=== PATIENT | male | born 1950 | race Caucasian/White ===

== ENCOUNTER 2023-07-28 16:51 | Inpatient (IN) | payer MEDICARE, BC, SELFPAY ==
[2023-07-28] VITALS (9 sets, daily range): BP systolic 85–110; BP diastolic 44–64; BMI 46.5
--- NOTE | 2023-07-28 16:51 | HPS.HSE ---
Addendum entered and electronically signed by CALI Padron 08/05/23 18:19:
Home medications:
Aspirin 81 mg p.o. daily
Metoprolol succinate 12.5 mg p.o. twice daily
Furosemide 40 mg p.o. daily
Pantoprazole 40 mg IV daily
Metformin 1000 mg p.o. twice daily
Original Note:
Family Physician
-
Family Physician: Dave Carl
Outpatient Chief Investigator: Pieter Caro
Chief Complaint
-
shortness of breathe
History of Present Illness
72 y/o male ([place] vet) with PMHx of HTN, HLD, DMII presented to [facility] on 07/26 with SOB x3 days. He was also c/o LE swelling of the last few months along with some QUILES. He called his PCP and they recommended he go to the hospital. He was found to be
hypoxic in the 70s and was placed on BIPAP. His BNP was 47, however, his CXR at that time showed vascular congestion. Therefore, he was diuresed with 40mg of IV Lasix and responded appropriately. EKG in ER showed ST-Depressions and troponins were
sent. First trop HS was 44 and the next was 8459. He was started on a heparin gtt for NSTEMI. At that time, he received a TTE that showed a NML LVEF. �They found that with hypertensive episodes he would start c/o CP, therefore, he was started on a
nitro gtt. He started to vomit coffee ground emesis so GI was consulted and was started on IV protonix and IV heparin was discontinued. His hgb remained stable. Today, he was taken to the CCL at [facility] and was found to have severe multi-vessel disease
and RHC numbers were stable. Therefore, he was transferred to [facility] for CABG eval.
Medical History
Past Medical History
Past Medical History: Reports CAD, HTN, Hypercholesterolemia, NIDDM and VA
Past Surgical History: Reports Appendectomy
Additional Past Surgical History:
cataracts
broken bones
Social History
Tobacco: Non-smoker
Alcohol: Occasional
Drug: None
Family History
Family History: CAD
Allergies / Home Medications
Allergies reflects when Allergies were last updated in [facility].
Home Medications with original date entered in [facility]
Allergy/Medication List:
NKDA
Review of Systems
-
History Source: Patient
A 12 point ROS was completed and negative except as noted: Yes
Constitutional: Reports Weight Gain
EENT: Reports No Symptoms
Respiratory: Reports Other (SOB/QUILES)
Cardiac: Reports Chest Pain
Abdomen/GI: Reports Vomiting and Other (reflux)
: Reports Dysuria, Difficulty Voiding and Urgency
Musculoskeletal: Reports Edema
Neurological: Reports No Symptoms
Endocrine: Reports No Symptoms
Hematologic/Lymphatic: Reports No Symptoms
Psych: Reports No Symptoms
Physical Exam
Vital Signs
Active Medications
Acetaminophen (Acetaminophen 325 Mg Tablet) 650 mg PO Q4HPRN PRN
PRN Reason: mild pain/BABB/temp> 100.4F
Stop: 08/25/23 11:09
Albuterol/Ipratropium (Ipratropium 0.5/Albuterol 3 Mg (3 Ml Ampul)) 3 ml INH R Q4HPRN PRN; Protocol
PRN Reason: shortness of breath
Aspirin (Aspirin 81 Mg (Enteric Coated) Tablet) 81 mg PO DAILY IRMA
Stop: 08/26/23 07:59
Atorvastatin Calcium (Atorvastatin (Lipitor) 80 Mg Tablet) 80 mg PO QPM IRMA
Stop: 08/25/23 17:59
Dextrose (Dextrose 50% (0.5 Grams/Ml) 50 Ml Syringe) 12.5 grams IV [id number] PRN; Protocol
PRN Reason: hypoglycemia
Stop: 08/25/23 17:41
Docusate Sodium (Docusate Sodium 100 Mg Capsule) 100 mg PO BID IRMA
Stop: 08/25/23 19:59
Furosemide (Furosemide 40 Mg Tablet) 40 mg PO DAILY IRMA
Stop: 08/26/23 07:59
Glucagon (Glucagon 1 Mg Vial) 1 mg IM PRN PRN; Protocol
PRN Reason: hypoglycemia
Stop: 08/25/23 17:41
Pantoprazole Sodium (Protonix) 80 mg in 100 mls @ 10 mls/hr IV Q10H IRMA
Insulin Aspart (Insulin Aspart High Resistance 300 Units/3 Ml Pen.Injctr) 0 units SC AC IRMA; Protocol
Stop: 08/26/23 07:29
Ondansetron HCl (Ondansetron 4 Mg/2 Ml Vial) 4 mg IV Q6HPRN PRN
PRN Reason: nausea and vomiting
Stop: 08/25/23 11:09
Polyethylene Glycol (Polyethylene Glycol Powder 17 Grams Packet) 17 grams PO DAILY IRMA
Stop: 08/26/23 07:59
Potassium Chloride (Potassium Chloride 20 Meq Powder Packet) 20 meq PO DAILY IRMA
Stop: 08/26/23 07:59
Sodium Chloride (Sodium Chloride 0.9% (Flush) Syringe) 0 flush IV PER PROTOCOL IRMA
Stop: 08/25/23 17:59
Tamsulosin HCl (Tamsulosin 0.4 Mg Capsule) 0.8 mg PO DAILY IRMA
Stop: 08/26/23 07:59
Vital Signs
Temp Pulse Resp BP Pulse Ox
98.2 F 85 15 95/58 95
07/28/23 17:01 07/28/23 17:01 07/28/23 17:01 07/28/23 16:56 07/28/23 17:01
I&O
07/26/23 07/27/23 07/28/23 07/29/23
06:59 06:59 06:59 06:59
Intake Total 250 / 250
Balance 250 / 250
Physical Exam
General: Well Developed, Well Nourished, No Apparent Distress and Morbidly Obese
Respiratory: Non Labored Respirations
Cardiac: S1/S2 and Regular Rhythm
Breast: Deferred by me
GI: Soft, Non Tender and Other (obese)
Rectal: Deferred by Provider
Genito-urinary: Mak
Musculoskeletal: No Clubbing, No Cyanosis, Edema, Left Lower Extremity and Edema, Right Lower Extremity
Skin: Warm and Dry
Neuro: AO x 3
Hematologic/Lymphatic: No Lymphadenopathy
Psych: Calm
Laboratory Results
-
Lab Results
07/28/23 17:37
07/28/23 17:37
PT 13.9 Sec (11.4-14.6) 07/28/23 17:37
INR 1.07 07/28/23 17:37
APTT 25.5 Sec (23.4-35.0) 07/28/23 17:37
Impression/Plan
-
IMPRESSION:
72 y/o male with PMHx listed above presented to [facility] with SOB. He ruled in for a NSTEMI and was taken to the CCL. He was found to have MVD and was transferred to for surgical eval.
PLAN:
#CAD
- planned for CABG on Sunday July 30, [address] López
- Routine preoperative cardiothoracic surgery orders will be initiated.
>>obtain TTE images from [facility]
-STS risk stratification score will be calculated after preoperative testing is complete
- Currently CP free so no nitro gtt
- Previous witnessed to have bloody vomited at [facility] so no heparin gtt at this time
- Cont ASA
- Daily EKG
-Cardiology consulted
#Possible upper GIB
- protonix gtt per GI
- GI consulted
- follow CBC trend
- Monitor for more bloody episodes
#Diabetes Type II
- Holding metformin and empagliflozin
- Hgb A1c pending
- SSI while inpatient
#HTN
- Holding Lisinopril
- Cardiology consulted
#Obesity
- BMI 46.5
- Diet education
#Urinary Frequency
- Mak catheter inserted at [facility]
- UA pending
- started on flomax
- Monitor I&O; remove tomorrow
Labs
-
Labs:
WBC 15.3 10^3/uL (4.8-10.8) H 07/28/23 17:37
RBC 4.39 10^6/uL (4.70-6.10) L 07/28/23 17:37
Hgb 13.2 g/dL (13.0-18.0) 07/28/23 17:37
Hct 38.9 % (39.0-52.0) L 07/28/23 17:37
Plt Count 334 10^3/uL (130-400) 07/28/23 17:37
Sodium 132 mmol/L (135-145) L 07/28/23 17:37
Potassium 4.0 mmol/L (3.5-5.1) 07/28/23 17:37
Chloride 95 mmol/L (98-107) L 07/28/23 17:37
Carbon Dioxide 26 mmol/L (22-30) 07/28/23 17:37
BUN 51 mg/dl (9-20) H 07/28/23 17:37
Creatinine 1.3 mg/dL (0.7-1.3) 07/28/23 17:37
eGFR 58.01 07/28/23 17:37
Glucose 165 mg/dl (70-99) H 07/28/23 17:37
Calcium 9.1 mg/dl (8.4-10.2) 07/28/23 17:37
Albumin 4.3 g/dl (3.5-5.0) 07/28/23 17:37
[2023-07-28 17:43] LABS: % Basophils 0.5 % (0-2); % Immature Granulocytes 0.5 % (0-0.5); % Lymphocytes 17.9 % (20.5-51.1); % Monocytes 8.6 % (1.7-9.3); % Neutrophils 71.5 % (42.2-75.2); Absolute Basophils 0.1 10^3/uL (0-0.2); Absolute Eosinophils 0.2 10^3/uL (0-0.7); Absolute Immature Granulocytes 0.1 10^3/uL (0-0.05); Absolute Lymphocytes 2.7 10^3/uL (1.2-3.4); Absolute Monocytes 1.3 10^3/uL (0.1-0.6); Absolute Neutrophils 10.9 10^3/uL (1.4-6.5); Hematocrit 38.9 % (39.0-52.0); Hemoglobin 13.2 g/dL (13.0-18.0); Mean Corp Hgb Conc. 33.9 g/dL (33.0-37.0); Mean Corpuscular Hgb 30.1 pg (27.0-31.0); Mean Corpuscular Volume 88.6 fL (80.0-94.0); Nucleated Red Blood Cells % 0 % (-); Platelet Count 334 10^3/uL (130-400); Red Blood Cell Count 4.39 10^6/uL (4.70-6.10); Red Cell Dist. Width 13.6 % (11.5-14.5); White Blood Cell Count 15.3 10^3/uL (4.8-10.8)
[2023-07-28 17:53] LABS: INR 1.07; PT 13.9 Sec (11.4-14.6)
[2023-07-28 17:54] LABS: APTT 25.5 Sec (23.4-35.0)
[2023-07-28 17:57] LABS: ALT (SGPT) 36 U/L (0-50); AST (SGOT) 50 U/L (17-59); Albumin 4.3 g/dl (3.5-5.0); Alkaline Phosphatase 56 U/L (38-126); Blood Urea Nitrogen 51 mg/dl (9-20); Calcium 9.1 mg/dl (8.4-10.2); Carbon Dioxide 26 mmol/L (22-30); Chloride 95 mmol/L (98-107); Estimated Creatinine Clearance 73 ml/min; Glucose 165 mg/dl (70-99); HDL Cholesterol 39 mg/dl; Magnesium 2.2 mg/dl (1.6-2.3); Sodium 132 mmol/L (135-145); Total Cholesterol 150 mg/dl (50-199); eGFR 58.01
[2023-07-28] MEDS: LIPITOR 80 MG PO (18:30)
[2023-07-28] MEDS: PROTONIX 100 IV (18:30)
[2023-07-28 18:46] LABS: LDL Cholesterol, Calculated 69 mg/dl; Triglyceride 214 mg/dl (10-149); Very Low Density Lipoprotein 42 mg/dl (0-30)
--- NOTE | 2023-07-28 18:54 | PTCARENOTE ---
Patient received as transfer from [facility] into room 2264. NSR via cm, SaO2 @ 96% on RA. Mak catheter draining cloudy yellow urine. Patient denies pain at this time. Admission completed, patient oriented to room and facility. Family to bedside. See
work list for full assessment and interventions performed.
[2023-07-28] MEDS: COLACE 100 MG PO (20:00)
--- NOTE | 2023-07-28 20:00 | PTCARENOTE ---
Received pt from dayshift; pt resting comfortably in chair with family in room; pt denies chest pain and SOB; VSS; NSR on monitor; heart sounds distant, radial and DP pulses palpable, no edema noted; lung sounds diminished throughout, spo2 94% on
RA; hypoactive BS x4 quadrants, abdomen round, soft non tender; pt voiding yellow urine via reza catheter; right radial cath site dressing is clean dry and intact; right PIV maintained; Protonix gtt infusing; call reyes within reach; will continue
to monitor.
--- NOTE | 2023-07-28 21:00 | PTCARENOTE ---
Pt assessment unchanged; NSR on monitor, VSS; pt denies chest pain and SOB; left PIV was removed due to leaking; x1 attempt was made to place a new PIV. Attempt was unsuccessful; IV team was called; IV team attempted PIV multiple times and was
unsuccessful; Pt currently has x1 PIV on right arm; CVPA made aware of failed attempts; will continue to monitor.
[2023-07-28 21:44] LABS: Glucose - Point of Care 147 mg/dl (70-99)
[2023-07-28 22:26] LABS: Urine Albumin Trace (Neg - Trace); Urine Bilirubin Negative (Negative); Urine Character Clear (Clear); Urine Color Yellow; Urine Glucose 1+ (Negative); Urine Ketone Negative (Negative); Urine Leukocyte 1+ (Negative); Urine Nitrite Negative (Negative); Urine Occult Blood 3+ (Negative); Urine Urobilinogen Negative (Neg - 1+)
[2023-07-28 22:57] LABS: Urine Hyaline Cast >15 /LPF (0-2)
[2023-07-28 22:59] LABS: Urine Red Blood Cell 21-25 /HPF (0-2)
[2023-07-28 23:00] LABS: Urine Bacteria Few (Negative); Urine Granular Cast 0-2 /LPF (0); Urine Red Cell Cast 0-2 /LPF
[2023-07-29] VITALS (16 sets, daily range): BP systolic 77–115; BP diastolic 41–72; BMI 46.6
--- NOTE | 2023-07-29 | PTCARENOTE ---
Pt assessment unchanged; Pt denies chest pain and SOB; NSR on monitor, VSS; pt resting comfortably in bed; call reyes within reach; will continue to monitor.
[2023-07-29] MEDS: PROTONIX 100 IV (03:33)
[2023-07-29 03:47] LABS: Hematocrit 37.9 % (39.0-52.0); Hemoglobin 12.8 g/dL (13.0-18.0); Mean Corp Hgb Conc. 33.8 g/dL (33.0-37.0); Mean Corpuscular Volume 88.8 fL (80.0-94.0); Mean Platelet Volume 10.1 fL (7.4-10.4); Platelet Count 298 10^3/uL (130-400); Red Blood Cell Count 4.27 10^6/uL (4.70-6.10); Red Cell Dist. Width 13.6 % (11.5-14.5); White Blood Cell Count 13.8 10^3/uL (4.8-10.8)
--- NOTE | 2023-07-29 04:00 | PTCARENOTE ---
Pt assessment unchanged; NSR on monitor, VSS; Pt resting comfortably in bed; pt denies chest pain and SOB; EKG obtained and labs drawn; call reyes within reach; will continue to monitor.
[2023-07-29 04:03] LABS: INR 1.03; PT 13.5 Sec (11.4-14.6)
[2023-07-29 04:04] LABS: APTT 25.8 Sec (23.4-35.0)
[2023-07-29 04:12] LABS: ALT (SGPT) 32 U/L (0-50); AST (SGOT) 37 U/L (17-59); Albumin 4.1 g/dl (3.5-5.0); Alkaline Phosphatase 52 U/L (38-126); Blood Urea Nitrogen 54 mg/dl (9-20); Carbon Dioxide 29 mmol/L (22-30); Chloride 95 mmol/L (98-107); Estimated Creatinine Clearance 80 ml/min; Glucose 161 mg/dl (70-99); Potassium 3.6 mmol/L (3.5-5.1); Sodium 133 mmol/L (135-145); Total Bilirubin 1.3 mg/dl (0.2-1.3); Total Protein 6.7 g/dl (6.3-8.2); eGFR > 60.00
--- NOTE | 2023-07-29 04:34 | W.PN.CT ---
Today's Communication / Plan
-
-no issues overnight
-drips: Protonix
-denies CP, remains off iv Nitro or iv Heparin
-mildly hypotensive 90s, asymptomatic
-recent possible GI bleed while on Heparin - appreciate GI input
-workup ongoing - follow Carotic US, chest CT, labs...
-plans for OR on Saturday 07/29
Assessment / Plan
-
Impression:
- 80-90% LM-CAD - work-up is ongoing. Plans for CABG on Sunday July 30, [address] López
- NSTEMI
- possible upper GI bleed while on iv Heparin at [facility] - now off Heparin, was evaluated by GI at [facility], started on iv Protonix drip
- Acute diastolic CHF with admission to [facility] on 07/27/23- tx with bipap and iv Lasix
- HTN/HLD
- 1st degree AVB
- EF 60%, no significant valve aborm by Echo at [facility]
- DM II
- Class 3 obesity (BMI 46)
- Urinary frequency - Mak placed at [facility]
- Non-smoker (hx 2nd hand smoke exposure)
Discussed patient care with: Nursing and Care Team
Subjective
-
Date of Service: July 29, 2023
Objective Data
-
Lab Results
07/29/23 03:36
07/29/23 03:36
PT 13.5 Sec (11.4-14.6) 07/29/23 03:36
INR 1.03 07/29/23 03:36
APTT 25.8 Sec (23.4-35.0) 07/29/23 03:36
Vital Signs
Vital Signs
Temp Pulse Resp BP Pulse Ox
98.8 F 73 17 92/46 96
07/29/23 04:00 07/29/23 04:15 07/28/23 17:45 07/29/23 04:01 07/29/23 04:01
CT Intake/Output/Weight
07/28/23 07/28/23 07/29/23
06:59 18:59 06:59
Intake Total 250 / 730 480 / 730
Output Total 100 / 625 525 / 625
Balance 150 / 105 -45 / 105
SaO2: 96
Physical Exam
-
General: Awake and AOx3
Cardiovascular: Regular rate & rhythm and No Murmurs
Respiratory: Decreased Breath Sounds (no wheeze, no rales)
Extremities: Edema +1
Data Reviewed
-
Lab Results: Results Reviewed
Medications: Active Meds Reviewed
Chest X-Ray: Report Reviewed and Image Reviewed
ECG: Report Reviewed and Image Reviewed
[2023-07-29 04:59] LABS: HCO3 28.5 mmol/L (21-28); O2 Saturation % 97.4 % (94-98); PCO2 46 mmHg (35-48); PO2 122 mmHg (83-108)
--- NOTE | 2023-07-29 07:45 | PTCARENOTE ---
Received pt from camp dining room attendant RN; NSR on monitor and VSS; Lungs diminished; IS 1500; positive bowel sounds; Mak Catheter draining clear yellow urine; weak pedal pulses; see nursing documentation for further details.
[2023-07-29] MEDS: NOVOLOG FLEXPEN-HIGH RESISTANCE SC (07:54)
[2023-07-29] MEDS: KCL 20 MEQ PO (08:03)
[2023-07-29] MEDS: ASPIR LOW (ENTERIC COATED) 81 MG PO (08:03)
[2023-07-29] MEDS: LASIX 40 MG PO (08:03)
[2023-07-29] MEDS: FLOMAX 0.800000000000000044 MG PO (08:03)
[2023-07-29] MEDS: COLACE 100 MG PO ×2 (08:04→20:42)
[2023-07-29] MEDS: MIRALAX 17 GRAMS PO (08:04)
--- NOTE | 2023-07-29 08:19 | PTCARENOTE ---
Pt sent to CAT scan via stretcher.
[2023-07-29 08:54] LABS: Glycohemoglobin (HgbA1c) 7.5 % (4.0-5.6)
--- NOTE | 2023-07-29 11:03 | W.PN.UPDATE ---
Update Note
Progress Note Update
Procedure Type:�Isolated CABG
PERIOPERATIVE OUTCOME ESTIMATE %
Operative Mortality 4.55%
Morbidity & Mortality 15.9%
Stroke 1.03%
Renal Failure 3.83%
Reoperation 2.17%
Prolonged Ventilation 10.3%
Deep Sternal Wound Infection 0.527%
Long Hospital Stay (>14 days) 11.7%
Short Hospital Stay (<6 days)* 25.5%
Clinical Summary
Planned Surgery: Isolated CABG, Urgent, First cardiovascular surgery
Demographics: 72 year old, male, 147kg, 178cm, BMI: 46.4 kg/m�
Lab Values: Creatinine: 1.2 mg/dL, Hematocrit: 37.8%, WBC Count: 13.8 10�/�L, Platelet Count: 433512 cells/�L
PreOp Medications: Oral diabetes control
Substance Abuse: Never smoker, Alcohol use: <=1 drink/week
Risk Factors / Comorbidities: Diabetes Mellitus , Hypertension, Family Hx of CAD
Cardiac Status: Acute heart failure, NYHA Class I, Ejection Fraction = 55%
Coronary Artery Disease: 2 vessels diseased, Left Main Stenosis >=50%, Non-ST Elevation WI, WI: 1 to 7 Days
[2023-07-29 11:14] LABS: Glucose - Point of Care 171 mg/dl (70-99)
[2023-07-29] MEDS: NOVOLOG FLEXPEN-HIGH RESISTANCE 2 UNITS SC ×2 (11:41→15:49)
--- NOTE | 2023-07-29 11:47 | W.PN.UPDATE ---
Update Note
Progress Note Update
CARDIAC SURGERY ATTENDING:
I had a long conversation w/ Mr. Gaurang Luo at bedside this afternoon. His was present via speakerphone. We reviewed his pathology, the proposed operative interventions, the associated perioperative risks [including, but not limited to,
, stroke, ID, arrhythmia, BRANDON/F, PNA, bleeding, and infection], the expected in-hospital postoperative course, and the expected outpatient recovery. All questions were answered to the best of my abilities. The patient is agreeable to proceed.
I will plan for OR tomorrow, 07/30/2023 w/ LUIS to LAD and GSV to OM.
Thank you for the opportunity to participate in the care of this kind gentleman.
Carson López M.D.
[phone]
--- NOTE | 2023-07-29 11:53 | CM ---
Addendum entered by CRISTI Orlando 07/29/23 16:21:
Met w/ patient, spouse Marcela and 2 grandchildren.
Reviewed pre and post op routines.
Provided Cardiac Rehab booklet.
Reviewed post op restrictions to include lifting, driving and flying restrictions.
Discussed post op MD appointments, Cardiac Rehab and visit from (pt. out of geographical area for CT Transitional Care RN).
Plan for CT Surgery, 07/29
Anticipated DC plan is for home w/ CT Transitional Care RN.
Will cont. to follow.
Original Note:
CM following for DC planning needs.
Pt. transferred to from [facility], 07/27.
Met w/ patient, son Nba at bedside.
Pt. reports that he resides w/ spouse and dtr. in a private, 2 story home. Patient has a 1st floor set up. He is functionally indep. at baseline w/ ADLs, mobility without use of any assisted device. There is no DME, O2 in the home.
Pt. is anticipating CT Surgery on 07/29. Will return when spouse arrives to complete pre-op teaching.
--- NOTE | 2023-07-29 14:03 | PTCARENOTE ---
Assessment unchanged; NSR on monitor and VSS; pt resting in chair with family at bedside.
[2023-07-29 15:49] LABS: Glucose - Point of Care 171 mg/dl (70-99)
[2023-07-29] MEDS: LIPITOR 80 MG PO (17:22)
--- NOTE | 2023-07-29 17:24 | PTCARENOTE ---
NSR on monitor and VSS: assessment unchanged; family at bedside and all questions answered regarding surgery tomorrow.
--- NOTE | 2023-07-29 21:00 | PTCARENOTE ---
Patient received OOB in chair. Patient A+A+Ox3. No neurological deficits noted. Patient clipped and prepped for CVOR in AM. Patient showered with 4% chlorhexidine wash. Linens changed. Patient now resting in chair watching television. Room
air. SaO2 94%. Sinus Rhythm to Sinus Tachycardia. Heart rate 80-100's. No c/o SOB. No c/o chest pain, pressure or discomfort. Normoactive bowel sounds. No BM. Positive flatus. Voiding without difficulty. Assessment as documented.
[2023-07-29 23:32] LABS: Glucose - Point of Care 170 mg/dl (70-99)
[2023-07-30] VITALS (17 sets, daily range): BP systolic 87–141; BP diastolic 42–85; BMI 46.4
--- NOTE | 2023-07-30 00:30 | PTCARENOTE ---
Patient NPO after midnight. Patient resting in bed. No changes from previous assessment.
[2023-07-30] MEDS: PROTONIX 40 MG PO (06:18)
[2023-07-30] MEDS: LOPRESSOR 12.5 MG PO (06:18)
[2023-07-30] MEDS: BACTROBAN 2% OINTMENT 1 APPLIC NASAL ×2 (06:18→19:47)
[2023-07-30] MEDS: MAGNESIUM OXIDE 500 MG PO (06:18)
--- NOTE | 2023-07-30 06:20 | PTCARENOTE ---
Patient A+A+Ox3. No neurological deficits noted. Patient with no c/o pain or discomfort. Patient took 4% Chlorhexidine shower this AM. Linens changed. Pre-Op medications administered. Lopressor 12.[address] López arrived and spoke
with patient. Patient resting in room. Veneer Stock Layer to CVOR. Assessment/Interventions as documented.
[2023-07-30 08:07] LABS: Urine Albumin Trace (Neg - Trace); Urine Bilirubin Negative (Negative); Urine Character Clear (Clear); Urine Color Yellow; Urine Glucose 3+ (Negative); Urine Ketone Negative (Negative); Urine Leukocyte 2+ (Negative); Urine Nitrite Negative (Negative); Urine Occult Blood 4+ (Negative); Urine Specific Gravity 1.015 (<1.030); Urine Urobilinogen Negative (Neg - 1+)
[2023-07-30 08:19] LABS: ACT+ - POC 90 Seconds (82-134)
[2023-07-30 08:20] LABS: Urine Squamous Cell 0-2 /LPF (Few)
[2023-07-30 08:21] LABS: B.E. - POC 2.1 mmol/L; Glucose - POC 189 mg/dl (65-99); HCO3 - POC 28 mmol/L (21-29); Hematocrit - POC 40 % PCV (42-52); Hemodilution- POC No; Hemoglobin Calculated - POC 13.7; Ionized Calcium - POC 1.18 mmol/L (1.12-1.27); PCO2 - POC 45 mmHg (35-45); PO2 - POC 133 mmHg (80-100); Sodium - POC 138 mmol/L (135-145)
--- NOTE | 2023-07-30 09:00 | CM ---
Addendum entered by CRISTI Orlando 07/30/23 16:23:
In anticipation of VN need, referral initiated to [facility], accepted. Will need to update them on DC date.
Original Note:
Patient in OR today for planned CABG.
CM to follow for DC planning needs.
[2023-07-30 11:38] LABS: B.E. - POC -1.3 mmol/L; Glucose - POC 193 mg/dl (65-99); HCO3 - POC 25 mmol/L (21-29); Hematocrit - POC 33 % PCV (42-52); Hemodilution- POC No; Hemoglobin Calculated - POC 11.4; Ionized Calcium - POC 1.16 mmol/L (1.12-1.27); O2 Saturation %Calculated-POC 98.6 5 (92-96); PCO2 - POC 50 mmHg (35-45); PO2 - POC 131 mmHg (80-100); Potassium - POC 4.1 mmol/L (3.6-5.0); Sodium - POC 139 mmol/L (135-145); pH - POC 7.31 (7.35-7.45)
[2023-07-30 11:44] LABS: ACT+ - POC 489 Seconds (82-134)
[2023-07-30] MEDS: LASIX PO (11:59)
[2023-07-30] MEDS: COLACE PO (11:59)
[2023-07-30] MEDS: FLOMAX PO (11:59)
[2023-07-30] MEDS: ASPIR LOW (ENTERIC COATED) PO (12:00)
[2023-07-30] MEDS: NOVOLOG FLEXPEN-HIGH RESISTANCE SC ×2 (12:00)
[2023-07-30] MEDS: MIRALAX PO (12:00)
[2023-07-30 12:09] LABS: B.E. - POC 3.1 mmol/L; Glucose - POC 195 mg/dl (65-99); HCO3 - POC 28 mmol/L (21-29); Hematocrit - POC 29 % PCV (42-52); Hemodilution- POC Yes; Hemoglobin Calculated - POC 9.9; Ionized Calcium - POC 1.01 mmol/L (1.12-1.27); PCO2 - POC 44 mmHg (35-45); PO2 - POC 400 mmHg (80-100); Potassium - POC 4.2 mmol/L (3.6-5.0); Sodium - POC 136 mmol/L (135-145); pH - POC 7.42 (7.35-7.45)
[2023-07-30 12:41] LABS: B.E. - POC 1.5 mmol/L; Glucose - POC 211 mg/dl (65-99); HCO3 - POC 27 mmol/L (21-29); Hematocrit - POC 38 % PCV (42-52); Hemodilution- POC Yes; Hemoglobin Calculated - POC 13.1; Ionized Calcium - POC 1.05 mmol/L (1.12-1.27); O2 Saturation %Calculated-POC 98.7 5 (92-96); PCO2 - POC 45 mmHg (35-45); PO2 - POC 124 mmHg (80-100); Potassium - POC 4.3 mmol/L (3.6-5.0); Sodium - POC 138 mmol/L (135-145); pH - POC 7.39 (7.35-7.45)
[2023-07-30 13:22] LABS: ACT+ - POC 427 Seconds (82-134)
[2023-07-30 13:22] LABS: ACT+ - POC 483 Seconds (82-134)
[2023-07-30 13:30] LABS: ACT+ - POC 85 Seconds (82-134)
[2023-07-30 13:34] LABS: B.E. - POC -1.9 mmol/L; Glucose - POC 169 mg/dl (65-99); HCO3 - POC 23 mmol/L (21-29); Hematocrit - POC 32 % PCV (42-52); Hemodilution- POC Yes; Hemoglobin Calculated - POC 10.9; Ionized Calcium - POC 1.27 mmol/L (1.12-1.27); O2 Saturation %Calculated-POC 96.3 5 (92-96); PCO2 - POC 40 mmHg (35-45); PO2 - POC 86 mmHg (80-100); Potassium - POC 3.8 mmol/L (3.6-5.0); Sodium - POC 140 mmol/L (135-145); pH - POC 7.38 (7.35-7.45)
--- NOTE | 2023-07-30 14:18 | W.CVOR.SURPR ---
CVOR Surgeon Immed Pre Op
-
I have examined this patient prior to performance of the scheduled procedure.
The patient's condition is unchanged from the time of the dictated/written History and
Physical and the patient is able to undergo the scheduled procedure.
--- NOTE | 2023-07-30 14:19 | W.IMMPOSTOP ---
Addendum entered and electronically signed by Carson López MD 07/30/23 15:02:
Dictated: [id number]
Original Note:
Surgical Immed Post Op Note
-
CARDIAC SURGERY OPERATIVE NOTE:
Preoperative Dx:
NSTEMI
LM CAD
Morbid obesity - BMI 46.1
DM II
Postoperative Dx:
Same
Procedures:
1) Median sternotomy
2) Takedown of LUIS (narrow pedicle)
3) Endoscopic harvest/prep of RLE GSV (not utilized)
4) Endoscopic/open harvest/prep of LLE GSV
5) CABG x 2 (LUIS to LAD, GSV to OM)
Surgeon:
Carson López M.D.
Assistants:
India AmadorA.-C.: endoscopic/open GSV harvest; first line production supervisor throughout; [id number] chest closure
Maye HanleyC.; endoscopic/open GSV harvest; deep [id number]-gm-[id number] chest closure
Anesthesia:
Roberto Rudolph M.D. and Jeromy Garay, C.R.N.A.
Perfusion:
Rashard RobleroPNikkie
Findings:
LUIS was very healthy conduit w/ very brisk blood flow; ELD 3.5mm
RLE GSV was fairly good quality, but the I did not have enough length of good quality to accomplish the graft to the OM
LLE GSV was of good quality & quantity; ELD 3.5mm
LAD was visible under epicardial adipose tissue; healthy vessel w/ scattered calcifications, ELD 2.75mm
OM was visible on the epicardial surface; healthy vessel w/ ELD 3.5mm
Post-VLADIMIR: Normal biventricular function; trace MR, trace TR
Complications:
None
Implants:
CT x 4 (B/L pleural; inferior mediastinal; superior mediastinal)
Sternal wires x 9
Sternal plate x 1 w/ 4 - 16mm and 4 - 14mm screws
Condition:
64 sinus w/ isoelectric STs; 108/66. 44/29. CVP 42. CO/CI: 4.3/1.7.
GTTS: precedex 0.5, levophed 4, insulin 1
Stable/guarded to CVICU
--- NOTE | 2023-07-30 14:29 | CON.INTV ---
Consultation
Consultation Request
Date/Time Consultation Requested: 07/30/2023
Date/Time Consultation Performed: 07/30/2023
Requesting Provider: Dr. López
Performing Provider: Dr. Benji Perez
Reason for Consultation: Postoperative ICU care
Medical History
-
History of Present Illness:
72-year-old male with past medical history significant for hypertension, hyperlipidemia, type 2 diabetes who presented initially to [facility] on 07/27/2023 complaining of shortness of breath for about 3 days. Also complaining of lower
extremity swelling for the last several months with progressive shortness of breath. He was found to be hypoxic and placed on BiPAP. Chest x-ray shows some vascular congestion.
He was found to have an abnormal EKG. Troponins were elevated. [facility] was [facility] to [facility] and he was found to have triple-vessel coronary artery disease.
Subsequently transferred to [facility] for evaluation of revascularization. He was deemed suitable candidate for surgical revascularization.
Underwent coronary artery bypass on 07/30/2023. We were consulted for postoperative critical care management.
Past Medical History
Past Medical History: Other (See assessment and plan section)
Social History
Tobacco: Non-smoker
Alcohol: Occasional
Family History
Family History: Unable to Obtain
Allergies / Home Medications
Allergies
Allergy/AdvReac Type Severity Reaction Status Date / Time
No Known Drug Allergies Allergy Unknown Verified 07/28/23 17:42
Home Medications
Medication Instructions Recorded Confirmed Last Taken Type
alpha lipoic acid 600 mg capsule 600 mg PO BID Supplement 07/28/23 07/28/23 Unknown History
ascorbic acid (vitamin C) 1,000 mg cap PO BID Supplement 07/28/23 07/25/23 History
capsule,extended release
aspirin 81 mg capsule 81 mg PO DAILY Blood Clot 07/28/23 07/28/23 Unknown History
Prevention/Tx
biotin 1,000 mcg chewable tablet 1,000 mcg PO DAILY Supplement 07/28/23 07/28/23 07/25/23 History
calcium 600 mg capsule mg PO BID Supplement 07/28/23 07/25/23 History
coenzyme Q10 100 mg capsule 200 mg PO DAILY Supplement 07/28/23 07/28/23 07/25/23 History
(CoQ-10)
cranberry extract 425 mg capsule 425 mg PO BID Supplement 07/28/23 07/28/23 07/25/23 History
cyanocobalamin (vitamin B-12) 2,500 mcg PO DAILY Supplement 07/28/23 07/28/23 07/25/23 History
1,000 mcg tablet
docosahexaenoic acid (dha)-epa 2 cap PO BID Supplement 07/28/23 07/28/23 07/25/23 History
capsule
empagliflozin 25 mg tablet 25 mg PO DAILY Diabetes 07/28/23 07/28/23 Unknown History
folic acid 800 mcg tablet 0.8 mg PO DAILY Supplement 07/28/23 07/28/23 07/25/23 History
garlic 1,000 mg capsule mg BID Supplement 07/28/23 07/25/23 History
glucosamine sulf dipot cap PO BID Supplement 07/28/23 07/25/23 History
chlr,msm,chond 550 mg-C 30 mg-adiran
1 mg capsule (Glucosamine
Chondroitin)
lisinopril 10 mg tablet 10 mg PO DAILY Blood Pressure 07/28/23 07/28/23 Unknown History
lutein 20 mg-zeaxanthin 1,000 mcg cap PO Supplement 07/28/23 07/25/23 History
capsule
magnesium glycinate 650 mg PO DAILY Supplement 07/28/23 07/28/23 07/25/23 History
metformin 1,000 mg tablet 1,000 mg PO BID Diabetes 07/28/23 07/28/23 Unknown History
milk thistle 200 mg capsule 200 mg PO DAILY Supplement 07/28/23 07/28/23 07/25/23 History
ricphifyparr-fesyiulg-ahefqp tablet 1 tab PO DAILY Supplement 07/28/23 07/28/23 07/25/23 History
pravastatin 20 mg tablet 20 mg PO HS High Cholesterol 07/28/23 07/28/23 Unknown History
saw palmetto 450 mg capsule 450 mg PO BID 07/28/23 07/28/23 07/25/23 History
turmeric 400 mg capsule mg PO TID 07/28/23 07/25/23 History
zinc 50 mg tablet 50 mg PO DAILY 07/28/23 07/28/23 07/25/23 History
Review of Systems
-
Unable to Obtain full review of systems at this time due to: Patient Intubation
Vitals / Labs / Diagnostic Testing
Vital Signs
Temp Pulse Resp BP Pulse Ox
97.8 F 85 16 141/64 96
07/30/23 05:50 07/30/23 06:18 07/30/23 05:50 07/30/23 06:18 07/30/23 05:50
Microbiology
07/28/23 22:14 Urine Urine Culture - Final
NO GROWTH
Diagnostic Testing:
Physical Exam
-
HEENT: Normocephalic and Other (ET tube in place without secretions)
Cardiovascular: S1/S2
Respiratory: Clear and Non-Labored Respirations
GI: Soft and Distended (Obese)
Neurology: Other (Sedated on mechanical ventilation)
Skin: Warm
General: Comfortable
Assessment
-
72-year-old man with past medical history noted initially presented to [facility] shortness of breath. Found to have a non-ST elevation myocardial infarction. Demonstrated to have three-vessel coronary artery disease. Transferred to
[facility] for surgical evaluation. Subsequently underwent coronary artery bypass.
Status post coronary artery bypass 07/30/2023
Postoperative mechanical ventilation
Postoperative anemia
Conditions present prior admission:
Type 2 diabetes
Hypertension
Obesity
VLADIMIR 07/30/2023:
Overall LVEF is approximately 55% with no RWMA.
�Moderate concentric left ventricular hypertrophy.
�Normal diastolic function.
�Aortic sclerosis without stenosis.
�Trace mitral regurgitation.
�Mild diffuse calcified atheroma seen in all aortic segments.
Assessment and plan:
He is doing well postop-currently on mechanical ventilation and appears comfortable.
ABG reviewed: Adequate ventilation and oxygenation.
Continue SIMV mode with no change
Spontaneous breathing trial per protocol once sedation wears off.
Anemia noted-no evidence of acute bleeding
Follow H&H serially
Hemodynamics -acceptable on low-dose Levophed
PA catheter in place
Arterial line in place
Will follow hemodynamics
Urinary output is adequate.
Chest tube with no excessive drainage-no air leak.
Chest x-ray reviewed: With no pneumothorax or fluid collections. Low lung volumes. Subsegmental atelectasis.
Remain nothing by mouth
Head of the bed elevation
Glycemic control per protocol
Suspected obstructive sleep apnea. Suggest outpatient evaluation.
DVT prophylaxis when safe from the surgical perspective.
Critical care statement: A total of 31 minutes of critical care time was provided for this patient today. This includes management of unstable vital signs, evaluation of the patient at bedside, reviewing the patient's pertinent medical records
including ventilator settings, arterial blood gases, radiographs, microbiology, laboratory evaluations and discussion with primary team, critical care nursing, and respiratory therapy.
[2023-07-30 15:07] LABS: Glucose - Point of Care 243 mg/dl (70-99)
[2023-07-30 15:17] LABS: B.E. -0.1 mmol/L; HCO3 25.4 mmol/L (21-28); Ionized Calcium 1.18 mMOL/L (1.15-1.33); O2 Saturation % 97.5 % (94-98); PCO2 44 mmHg (35-48); PO2 115 mmHg (83-108); Potassium 4.4 mMOL/L (3.5-5.1); Sodium 135 mMOL/L (136-145); pH 7.37 (7.35-7.45)
--- NOTE | 2023-07-30 15:20 | PTCARENOTE ---
pt received from [facility], sedated on Precedex gtt, RASS -5. core temp 96.4F, bear hugger applied as ordered. SR w/ 1st degree AVB on the monitor, HR 60s. distant heart tones. SBP 100-110s, Levophed gtt titrated as ordered. PAP 30s/10-20s. CVP ~10. CI
1.91. palpable pulses. pt mechanically ventilated, ETT #8.0, 24cm@lip. SIMV 16, TV 600, PEEP 5, PS 5, FIO2 60%, 97% POX. lungs clear anteriorly. suctioned for scant clear oral secretions. CT x4, no air leak or crepitus noted. pt abdomen round,
hypoactive BS. Mak in place, clear yellow urine. sternal Aquacel intact, chest tube dressing c/d/i. R groin 4x4 in [address]. b/l LE STAR bandage in place. RIJ cordis/swan maintained. L radial Sharyn flushed, zeroed, and calibrated. PIV. lab work drawn,
EKG performed, CXR completed. see worklist for VS, I&O, and assessment.
[2023-07-30] MEDS: NOVOLOG FLEXPEN SC ×2 (15:23→16:50)
[2023-07-30] MEDS: NSS 500 IV (15:24)
[2023-07-30] MEDS: NEURONTIN PO (15:24)
[2023-07-30] MEDS: TYLENOL PO (15:24)
[2023-07-30] MEDS: ANCEF 10 IV ×2 (15:24)
[2023-07-30] MEDS: PACERONE PO (15:24)
[2023-07-30 15:25] LABS: Hematocrit 31.2 % (39.0-52.0); Hemoglobin 10.6 g/dL (13.0-18.0); Platelet Count 256 10^3/uL (130-400)
[2023-07-30 15:32] LABS: INR 1.23; PT 15.3 Sec (11.4-14.6)
[2023-07-30 15:33] LABS: APTT 27.9 Sec (23.4-35.0)
[2023-07-30 15:37] LABS: Blood Urea Nitrogen 30 mg/dl (9-20); Estimated Creatinine Clearance 119 ml/min; Glucose 207 mg/dl (70-99); Magnesium 2.5 mg/dl (1.6-2.3)
--- NOTE | 2023-07-30 15:37 | W.PN.CD ---
Addendum entered and electronically signed by Brian Saenz MD 07/31/23 11:00:
I saw and examined the patient.
The BLOOD TESTER's note was reviewed and I agree with the note.
Comment: 72 yo male with HTN, HLD, morbid obesity and DM, who presented [facility] 07/28/23 with SOB.� NSTEMI with elevated troponin and cardiac cath showed multivessel CAD, so he was transferred here for CABG evaluation.� His lye treater is Dr. Caro at
[facility].� Underwent CABG x [address] López 07/30/23. Late entry, I saw and examined patient on July 30, 2023.
- Wean sedation and ventilator
- cont routine post op care
Original Note:
Today's Communication / Plan
-
post op care per CTS
Impression / Plan
-
Mr. Luo is a 72 yo male with HTN, HLD, morbid obesity and DM, who presented [facility] 07/28/23 with SOB. NSTEMI with elevated troponin and cardiac cath showed multivessel CAD, so he was transferred here for CABG evaluation. His lye treater is Dr. Caro
at [facility]. Underwent CABG x [address] López 07/30/23.
CAD - s/p CABG x 2 (LUIS to LAD, GSV to OM) by Dr. López 07/30/23.
- intubated/sedated post op on vent.
- post-op care per CTS.
- EKG SR, tele SR.
- NSTEMI at [facility], continue Plavix.
HTN - currently on Levophed, Precedex post-op.
- monitor.
HLD - Lipitor 80mg daily.
DM - insulin drip.
Morbid obesity - BMI 46.
- plan for cardiac rehab as outpatient.
Physical Exam
Vital Signs/Labs
Vital Signs
Temp Pulse Resp BP Pulse Ox
96.4 F L 67 16 100/69 94
07/30/23 15:00 07/30/23 15:20 07/30/23 15:20 07/30/23 15:09 07/30/23 15:29
07/29/23 07/30/23 07/31/23
06:59 06:59 06:59
Actual Weight 147.2 kg 146.6 kg
PT 13.5 Sec (11.4-14.6) 07/29/23 03:36
INR 1.03 07/29/23 03:36
APTT 25.8 Sec (23.4-35.0) 07/29/23 03:36
Magnesium 2.2 mg/dl (1.6-2.3) 07/28/23 17:37
Triglycerides 214 mg/dl (10-149) H 07/28/23 17:37
LDL Cholesterol, Calc 69 mg/dl 07/28/23 17:37
VLDL Cholesterol, Calc 42 mg/dl (0-30) H 07/28/23 17:37
HDL Cholesterol 39 mg/dl 07/28/23 17:37
LAB Results
07/28/23 07/29/23 07/29/23
20:14 03:36 12:00
Troponin I Cancelled 3.870 H* 2.360 H*
Physical Exam
Constitutional: No acute distress
EENT: Anicteric and Other (intubated on vent/sedated)
Cardiovascular: Rhythm & rate is regular
Respiratory: Respiratory effort normal (anteriorly on vent settings, intubated)
GI: Soft
Neuro/Psych: Other (sedated/intubated on vent post-op)
Other: Skin (warm, dry)
Data Reviewed
-
Date of Service: July 30, 2023
Medical Decision Making: Reviewed Test Results
EKG: Tracing Personally Visualized and interpreted
Medical Tests (PFT, Pathology etc): Report Reviewed by me
Labs: Labs Reviewed by me
Old Records: Reviewed
[2023-07-30 16:01] LABS: Glucose - Point of Care 213 mg/dl (70-99)
[2023-07-30] MEDS: DILAUDID 0.5 MG IV (16:49)
[2023-07-30] MEDS: LIPITOR PO (16:50)
[2023-07-30 16:58] LABS: Glucose - Point of Care 204 mg/dl (70-99)
--- NOTE | 2023-07-30 17:15 | PTCARENOTE ---
pt woke up and able to open eyes to voice, nods appropriately, EASON, follows commands. pt nodded head yes to pain, CPOT 7, Dilaudid 0.5mg IVP given as ordered.
[2023-07-30 17:58] LABS: Glucose - Point of Care 201 mg/dl (70-99)
--- NOTE | 2023-07-30 18:03 | PTCARENOTE ---
pt placed on CPAP trial, POX 93-94%. nods appropriately and follows commands, EASON. CURATORIAL ASSISTANT aware.
[2023-07-30] MEDS: OFIRMEV 100 IV (18:32)
[2023-07-30 18:35] LABS: B.E. 1.3 mmol/L; HCO3 26.6 mmol/L (21-28); Ionized Calcium 1.19 mMOL/L (1.15-1.33); O2 Saturation % 96.7 % (94-98); PCO2 44 mmHg (35-48); PO2 91 mmHg (83-108); Potassium 4.6 mMOL/L (3.5-5.1); pH 7.39 (7.35-7.45)
[2023-07-30 18:42] LABS: Hemoglobin 10.8 g/dL (13.0-18.0); Platelet Count 277 10^3/uL (130-400)
--- NOTE | 2023-07-30 18:45 | RESPNOTE ---
pt extubated to 6 lpm of nasal cannul. 02 sats of 95% noted
[2023-07-30 19:07] LABS: Glucose - Point of Care 168 mg/dl (70-99)
[2023-07-30] MEDS: ANCEF 5 IV (19:46)
[2023-07-30] MEDS: LOW STRENGTH ASPIRIN 81 MG PO (19:46)
[2023-07-30] MEDS: SENOKOT-S PO (19:47)
[2023-07-30] MEDS: DILAUDID 0.25 MG IV ×2 (19:53→23:36)
--- NOTE | 2023-07-30 20:00 | PTCARENOTE ---
Received pt from [facility]; pt is resting comfortably in bed with family at bedside;Pt is AAOx3; NSR with 1st degree AVB on monitor, VSS; Heart sounds audible, rub present, radial pulses palpable, DP pulses audible on doppler; pt extubated @1845 to 6
LNC, spo2 97%, lung sounds diminished throughout, mediastinal CT x2 and right and left pleural CT to -20 wall suction, no air leaks, no crepitus; hypoactive BS x4 quadrants, abdomen soft non tender, evidence of past hernia repair in center of
abdomen; pt voiding clear yellow urine via reza catheter; surgical sites and dressings maintained; right IJ cordis, right swan @ 55, left A-line, left arm 18g PIV maintained, leveled and zeroed; insulin and Levophed gtt infusing; will continue to
monitor.
[2023-07-30 20:01] LABS: Glucose - Point of Care 151 mg/dl (70-99)
[2023-07-30] MEDS: NOVOLIN R INSULIN INFUSION 100 IV (20:39)
[2023-07-30 21:06] LABS: Glucose - Point of Care 128 mg/dl (70-99)
[2023-07-30] MEDS: ALBUMIN 5% 250 IV (21:14)
[2023-07-30] MEDS: PACERONE 200 MG PO ×2 (21:54→23:35)
[2023-07-30] MEDS: NEURONTIN 100 MG PO (21:54)
[2023-07-30] MEDS: TYLENOL 1000 MG PO (21:54)
[2023-07-30 22:03] LABS: Glucose - Point of Care 131 mg/dl (70-99)
[2023-07-30] MEDS: ROXICODONE 5 MG PO (22:29)
[2023-07-31] VITALS (31 sets, daily range): BP systolic 88–133; BP diastolic 41–89; PULSE 90–91; O2SAT 98–99; BMI 45.5
--- NOTE | 2023-07-31 | PTCARENOTE ---
Pt assessment unchanged; VSS, NSR with 1st degree AVB on monitor; pt resting in comfortably in bed; Albumin 250mls given per CV[facility] for reduced urine output; on going pain management, see JUL; Levo gtt off at 2234; CHG wipes provided, new gown and new
leads; call reyes within reach; will continue to monitor.
[2023-07-31 00:21] LABS: Glucose - Point of Care 123 mg/dl (70-99)
[2023-07-31 02:04] LABS: Glucose - Point of Care 111 mg/dl (70-99)
[2023-07-31 03:11] LABS: Glucose - Point of Care 110 mg/dl (70-99)
[2023-07-31] MEDS: ANCEF 5 IV ×2 (03:17→11:14)
[2023-07-31] MEDS: DILAUDID 0.25 MG IV (03:17)
[2023-07-31 03:24] LABS: Hematocrit 29.5 % (39.0-52.0); Mean Corp Hgb Conc. 33.9 g/dL (33.0-37.0); Mean Corpuscular Volume 88.6 fL (80.0-94.0); Mean Platelet Volume 10.4 fL (7.4-10.4); Platelet Count 228 10^3/uL (130-400); Red Blood Cell Count 3.33 10^6/uL (4.70-6.10); Red Cell Dist. Width 13.3 % (11.5-14.5); White Blood Cell Count 14.1 10^3/uL (4.8-10.8)
[2023-07-31 03:46] LABS: Blood Urea Nitrogen 29 mg/dl (9-20); Calcium 8.4 mg/dl (8.4-10.2); Carbon Dioxide 27 mmol/L (22-30); Chloride 106 mmol/L (98-107); Estimated Creatinine Clearance > 125 ml/min; Glucose 106 mg/dl (70-99); Magnesium 2.5 mg/dl (1.6-2.3); Potassium 4.3 mmol/L (3.5-5.1); Sodium 136 mmol/L (135-145); eGFR > 60.00
--- NOTE | 2023-07-31 03:55 | W.PN.CT ---
Today's Communication / Plan
-
Plan:
-No major issues overnight. Hemodynamically and neurologically intact
-Successfully extubated yesterday 07/30/23 @ 1850
-Weaned off of Levophed gtt last night, remains on insulin gtt per protocol
-Last CI 3.19, u/o since OR 780 mL
-Monitor chest tube output: 2meds 395/460, R/L pls 430/480
-D/C'd swan and a-line this AM @ 0430
-Transfer to [facility] tomorrow once off insulin gtt
-D/C reza catheter later in the day given urinary frequency @ [facility], probable BPH
-Maintain cordis
-No temporary pacer
-Cont. current meds (ASA, Amiodarone, Lipitor, Lopressor- held last night given hypotension on Levophed; add Plavix)
-Encourage use of IS
-Wean off of O2 as tolerated
-OOB into chair/Ambulate
Assessment / Plan
-
Assessment:
-S/P CABG x 2 (LUIS to LAD, GSV to OM)/Left EVH/Right EVH (not utilized), by Dr. López, 07/30/23, pod#1
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
-NSTEMI @ [facility]
-LVEF 55%; improved to 60% postop per intraop VLADIMIR
-Acute diastolic CHF with admission to [facility] on 07/27/23- tx with bipap and iv Lasix
-Probable hemoptysis d/t pulmonary edema @ [facility]
-HTN
-HLD
-1st degree AVB
-Type 2 DM (hgb A1C 7.5)
-Class 3 obesity (BMI 46.4)
-Urinary frequency @ [facility]/Probable BPH
-Non-smoker (hx 2nd hand smoke exposure)
-S/P Cataracts
-S/P Appendectomy
-Acute postop blood loss/Anemia (stable without transfusion)
-Acute postop atelectasis/pleural effusion
-Acute postop hypovolemia with subsequent hypervolemia
Discussed patient care with: Cardiology, Nursing, Respiratory Therapy, Pharmacy and Care Team
Subjective
-
Date of Service: July 31, 2023
Objective Data
-
Lab Results
07/31/23 03:11
07/31/23 03:11
PT 15.3 Sec (11.4-14.6) H 07/30/23 15:05
INR 1.23 07/30/23 15:05
APTT 27.9 Sec (23.4-35.0) 07/30/23 15:05
Vital Signs
Vital Signs
Temp Pulse Resp BP Pulse Ox
98.2 F 100 35 88/51 95
07/31/23 03:00 07/31/23 03:20 07/31/23 03:20 07/31/23 03:00 07/31/23 03:20
CT Intake/Output/Weight
07/30/23 07/30/23 07/31/23
06:59 18:59 06:59
Intake Total 480 / 960 260.2 / 642.5 382.3 / 642.5
Output Total 1050 / 2100 350 / 1315 965 / 1315
Balance -570 / -1140 -89.8 / -672.5 -582.7 / -672.5
SaO2: 95 (2L)
Physical Exam
-
General: Awake, Oriented and AOx3
Cardiovascular: Regular rate & rhythm, No Murmurs and No Rub
Respiratory: Decreased Breath Sounds
Sternum: Stable
Incision: Clean, Dry, Intact and Dressing Intact
Extremities: Other (+trace)
Data Reviewed
-
Lab Results: Results Reviewed
Medications: Active Meds Reviewed
Chest X-Ray: Report Reviewed and Image Reviewed
ECG: Report Reviewed and Image Reviewed
--- NOTE | 2023-07-31 04:00 | PTCARENOTE ---
Pt assessment unchanged; Pt resting comfortably in bed; on going pain management, see MAR; labs drawn and sent; EKG obtained; call reyes within reach; will continue to monitor.
[2023-07-31 04:06] LABS: Glucose - Point of Care 102 mg/dl (70-99)
--- NOTE | 2023-07-31 04:45 | PTCARENOTE ---
Pt assessment unchanged; NSR on monitor with 1st degree AVB, VSS; A-line and swan d/c'd and removed; pt resting comfortably in bed; call reyes within reach; will continue to monitor.
[2023-07-31] MEDS: PACERONE 400 MG PO ×3 (05:03→21:54)
[2023-07-31] MEDS: TYLENOL 1000 MG PO ×3 (05:03→21:55)
[2023-07-31] MEDS: ROXICODONE 5 MG PO ×4 (05:04→20:19)
[2023-07-31 05:11] LABS: Glucose - Point of Care 131 mg/dl (70-99)
[2023-07-31 07:17] LABS: Glucose - Point of Care 134 mg/dl (70-99)
[2023-07-31 07:17] LABS: Glucose - Point of Care 151 mg/dl (70-99)
--- NOTE | 2023-07-31 07:30 | PTCARENOTE ---
Assumed care of patient from night worker RN. AAO x 3 sitting up in the chair. Complains of generalized pain, doesn't particularly like the recliner. Adjusted and repositioned for comfort. Flexeril administered. SR on monitor. 3 L NC 95%,
Occasional moist cough appreciated. Is to 750 , needs encouragement to use. Chest tubes x 4 to - 20 cm suction, no air leak or crepitus noted. Abdomen obese , hypoactive bowel sounds noted. Mak draining clear nikolas urine. Bilateral leg fredi
wraps intact. DP pulses weakly palpable. General anasarca appreciated at trace. Insulin infusing per glycemic protocol. Plan for day discussed.
[2023-07-31] MEDS: FLEXERIL 5 MG PO (08:00)
[2023-07-31] MEDS: MAGNESIUM OXIDE 500 MG PO (08:00)
[2023-07-31] MEDS: PROTONIX 40 MG PO (08:00)
[2023-07-31] MEDS: NEURONTIN 100 MG PO ×3 (08:00→21:54)
[2023-07-31] MEDS: PLAVIX 75 MG PO (08:00)
[2023-07-31] MEDS: LOPRESSOR 12.5 MG PO ×2 (08:00→12:23)
[2023-07-31] MEDS: LOW STRENGTH ASPIRIN 81 MG PO (08:00)
[2023-07-31] MEDS: SENOKOT-S 1 TABLET PO ×2 (08:00→19:58)
[2023-07-31] MEDS: BACTROBAN 2% OINTMENT 1 APPLIC NASAL ×2 (08:01→19:59)
[2023-07-31 09:20] LABS: Glucose - Point of Care 178 mg/dl (70-99)
[2023-07-31] MEDS: NOVOLOG FLEXPEN SC ×2 (10:04→18:29)
[2023-07-31] MEDS: NOVOLIN R INSULIN INFUSION 100 IV ×2 (10:49→21:55)
--- NOTE | 2023-07-31 11:00 | W.PN.INTV ---
Today's Communication / Plan
Recommendations
Continue postoperative care
Monitor chest tube output
Follow H&H
Pain control with narcotics, monitor respiratory status closely
Increase activity as tolerated
Sign off
Assessment
-
72-year-old man with past medical history noted initially presented to [facility] shortness of breath. Found to have a non-ST elevation myocardial infarction. Demonstrated to have three-vessel coronary artery disease. Transferred to
[facility] for surgical evaluation. Subsequently underwent coronary artery bypass.
Status post coronary artery bypass 07/30/2023
Postoperative mechanical ventilation
Postoperative anemia
Conditions present prior admission:
Type 2 diabetes
Hypertension
Obesity
VLADIMIR 07/30/2023:
Overall LVEF is approximately 55% with no RWMA.
�Moderate concentric left ventricular hypertrophy.
�Normal diastolic function.
�Aortic sclerosis without stenosis.
�Trace mitral regurgitation.
�Mild diffuse calcified atheroma seen in all aortic segments.
Assessment and plan:
Did well overnight.
Extubated without difficulties
On very low rate supplemental oxygen
Clear lung exam
Reports of some incisional pain.
Analgesia with narcotics as needed, monitor respiratory status closely.
Anemia noted-no evidence of acute bleeding
Follow H&H serially
Antiplatelets started
Hemodynamics -stable. Off vasopressors.
Urinary output is adequate.
Normal renal function
Chest tube with no excessive drainage-no air leak.
Chest x-ray reviewed: With no pneumothorax or fluid collections. Stable postoperative changes.
Advance diet as tolerated
Head of the bed elevation
Glycemic control per protocol
Suspected obstructive sleep apnea. Suggest outpatient evaluation. Discussed with patient, information will be left in the chart.
DVT prophylaxis when safe from the surgical perspective.
Patient has been transferred to telemetry phase.
Critical care team will sign off
Subjective Dataa
Subjective Data
Date of Service:
Date of Service: July 31, 2023
Chief Complaint: Doctor Of Dental Surgery Follow Up (Status post coronary artery bypass)
Subjective:
Reports some incisional pain
No significant cough and phlegm production
Denies shortness of breath at rest
Review of Systems
General: Fever (n)
Cardiopulmonary: Dyspnea (n)
GI: Abdominal Pain (n) and Nausea (n)
Objective Data
Data Reviewed
Vital Signs / I&O / Oxygen:
Vital Signs
Temp Pulse Resp BP Pulse Ox
98.7 F 84 27 104/51 95
07/31/23 08:00 07/31/23 08:50 07/31/23 08:50 07/31/23 08:00 07/31/23 09:25
Intake and Output
07/30/23 07/31/23 08/01/23
06:59 06:59 06:59
Intake Total 960 / 960 1181.8 / 1201.8 290 / 290
Output Total 2100 / 2100 1570 / 1760 430 / 430
Balance -1140 / -1140 -388.2 / -558.2 -140 / -140
SaO2 [CPAP/PSV] 94
SaO2 [SIMV] 94
SaO2 95
Nasal Cannula flow liters per 3
minute
Physical Exam
General: Respiratory Distress (n) and Pain
HEENT: Normocephalic
Cardiovascular: S1-S2 and Regular Rhythm
Respiratory: Clear and Non-Labored Respirations
GI: Soft and Distended (Obese)
Neurology: Awake, Alert, Oriented and No Motor Deficits
Labs/Micro/Reports
Lab Data
07/31/23 03:11
07/31/23 03:11
Laboratory Results
07/30/23 07/30/23
15:05 18:29
PT 15.3 H
INR 1.23
APTT 27.9
pH 7.37 7.39
pCO2 44 44
pO2 115 H 91
HCO3 25.4 26.6
O2 Delivery Level
Microbiology
07/30/23 07:55 Urine Urine Culture - Final
NO GROWTH
07/28/23 22:14 Urine Urine Culture - Final
NO GROWTH
[2023-07-31 11:10] LABS: Glucose - Point of Care 181 mg/dl (70-99)
[2023-07-31] MEDS: LASIX 40 MG PO (11:13)
[2023-07-31] MEDS: NOVOLOG FLEXPEN 8 UNITS SC (11:14)
[2023-07-31] MEDS: KCL 20 MEQ PO (11:14)
--- NOTE | 2023-07-31 12:07 | SUR.OPER ---
Remains seated in chair. pain well managed at this time. Chest tubes draining serous / serosanguineous drainage CT PA updated on totals. Amk cath removed as per order, pt provided with urinal will monitor for output. Assessment otherwise
unchanged from prior.
[2023-07-31 13:48] LABS: Glucose - Point of Care 192 mg/dl (70-99)
[2023-07-31] MEDS: NSS IV (14:37)
[2023-07-31 15:14] LABS: Glucose - Point of Care 163 mg/dl (70-99)
--- NOTE | 2023-07-31 16:00 | PTCARENOTE ---
Resting in bed, pain well managed with Audrey. Chest tube drainage less past few hours. Voided 200 ml nikolas urine. VSS Assessment otherwise unchanged from prior.
[2023-07-31 16:23] LABS: Glucose - Point of Care 85 mg/dl (70-99)
[2023-07-31 17:18] LABS: Glucose - Point of Care 78 mg/dl (70-99)
[2023-07-31 18:17] LABS: Glucose - Point of Care 79 mg/dl (70-99)
[2023-07-31] MEDS: LIPITOR 80 MG PO (18:29)
[2023-07-31] MEDS: ALBUMIN 5% 250 IV (18:29)
[2023-07-31 19:54] LABS: Glucose - Point of Care 142 mg/dl (70-99)
--- NOTE | 2023-07-31 20:00 | PTCARENOTE ---
Received pt from [facility]; pt resting comfortably in chair; pt AAOx3, complains of 6/10 pain, see MAR; NSR with prolonged QT, VSS; Heart sounds audible but distant, rub present, radial and DP pulse palpable; Lung sounds diminished throughout, Spo2
99% on 2 LNC, x2 mediastinal CT and right/left pleural CT to -20 wall suction, no air leaks, no crepitus, no tidaling; hypoactive BS x4 quadrants, abdomen soft non tender; pt voiding clear yellow urine post reza catheter removal @ 1100; surgical
sites and dressings clean, dry, and maintained; right IJ cordis and left arm 18g PIV maintained, insulin gtt infusing; pt assisted to commode and then back to bed; CHG wipes provided, tele leads changed; call reyes within reach; will continue to
monitor.
[2023-07-31] MEDS: MAGNESIUM OXIDE PO (20:15)
[2023-07-31 21:06] LABS: Glucose - Point of Care 126 mg/dl (70-99)
[2023-07-31 22:00] LABS: Glucose - Point of Care 109 mg/dl (70-99)
[2023-07-31] MEDS: CALCIUM CHLORIDE 10% SYRINGE 60 MG IV (22:51)
[2023-07-31 22:59] LABS: Glucose - Point of Care 121 mg/dl (70-99)
[2023-07-31 23:59] LABS: Glucose - Point of Care 117 mg/dl (70-99)
[2023-08-01] VITALS (20 sets, daily range): BP systolic 88–156; BP diastolic 46–93; PULSE 95–115; O2SAT 94; BMI 46.7
--- NOTE | 2023-08-01 | PTCARENOTE ---
Pt assessment unchanged; NSR on monitor, VSS; pt resting comfortably in bed; calcium chloride 1000mg given for BP; pt is asymptomatic of hypotension; call reyes within reach; will continue to monitor.
[2023-08-01 00:55] LABS: Glucose - Point of Care 119 mg/dl (70-99)
[2023-08-01 03:05] LABS: Glucose - Point of Care 130 mg/dl (70-99)
[2023-08-01] MEDS: FLEXERIL 5 MG PO ×2 (03:14→20:22)
--- NOTE | 2023-08-01 03:30 | PTCARENOTE ---
Pt assessment unchanged. NSR on monitor, VSS. Pt resting comfortably in bed. Right IJ cordis is no longer flushing and blood can not be pulled back from it. Peripheral labs were attempted by CVICU staff but were unsuccessful. Phlebotomy was called
to drawn labs. Call reyes within reach. will continue to monitor.
[2023-08-01 03:46] LABS: Hematocrit 26.8 % (39.0-52.0); Hemoglobin 8.9 g/dL (13.0-18.0); Mean Corp Hgb Conc. 33.2 g/dL (33.0-37.0); Mean Corpuscular Hgb 30.1 pg (27.0-31.0); Mean Corpuscular Volume 90.5 fL (80.0-94.0); Mean Platelet Volume 10.4 fL (7.4-10.4); Platelet Count 233 10^3/uL (130-400); Red Blood Cell Count 2.96 10^6/uL (4.70-6.10); Red Cell Dist. Width 13.5 % (11.5-14.5)
--- NOTE | 2023-08-01 04:00 | PTCARENOTE ---
Pt assessment unchanged; NSR on monitor, VSS; pt resting comfortably in bed; labs drawn and sent; call reyes within reach; will continue to monitor.
[2023-08-01 04:03] LABS: Blood Urea Nitrogen 25 mg/dl (9-20); Calcium 8.5 mg/dl (8.4-10.2); Carbon Dioxide 29 mmol/L (22-30); Chloride 98 mmol/L (98-107); Estimated Creatinine Clearance 118 ml/min; Glucose 128 mg/dl (70-99); Magnesium 2.4 mg/dl (1.6-2.3); Sodium 132 mmol/L (135-145); eGFR > 60.00
[2023-08-01 04:55] LABS: Glucose - Point of Care 150 mg/dl (70-99)
[2023-08-01] MEDS: TYLENOL 1000 MG PO ×3 (05:24→20:20)
--- NOTE | 2023-08-01 06:13 | W.PN.CT ---
Today's Communication / Plan
-
Plan:
-No major issues overnight. Hemodynamically and neurologically intact
-A bit hypotensive yesterday after receiving Lasix and Lopressor
-Consider d/c of chest tubes: 2meds 110/290, R/L pls 90/330
-Transfer to tele phase today once off insulin gtt
-Maintain cordis another day
-No temporary pacer
-Cont. current meds (ASA, Plavix, Amiodarone, Lipitor, Lopressor and Lasix if BP permits)
-Encourage use of IS
-Wean off of O2 as tolerated
-OOB into chair/Ambulate
-PT/OT following
Assessment / Plan
-
Assessment:
-S/P CABG x 2 (LUIS to LAD, GSV to OM)/Left EVH/Right EVH (not utilized), by Dr. López, 07/30/23, pod#2
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
-NSTEMI @ [facility]
-LVEF 55%; improved to 60% postop per intraop VLADIMIR
-Acute diastolic CHF with admission to [facility] on 07/27/23- tx with bipap and iv Lasix
-Probable hemoptysis d/t pulmonary edema @ [facility]
-HTN
-HLD
-1st degree AVB
-Type 2 DM (hgb A1C 7.5)
-Class 3 obesity (BMI 46.4)
-Urinary frequency @ [facility]/Probable BPH
-Non-smoker (hx 2nd hand smoke exposure)
-S/P Cataracts
-S/P Appendectomy
-Acute postop blood loss/Anemia (stable without transfusion)
-Acute postop atelectasis/pleural effusion
-Acute postop hypovolemia with subsequent hypervolemia
Discussed patient care with: Cardiology, Nursing, Respiratory Therapy, Pharmacy and Care Team
Subjective
Procedure
S/P CABG x 2 (LUIS to LAD, GSV to OM)/Left EVH/Right EVH (not utilized), by Dr. López, 07/30/23,
-
Date of Service: August 01, 2023
Pt c/o incisional pain, otherwise feels well
Objective Data
-
Lab Results
08/01/23 03:39
08/01/23 03:39
PT 15.3 Sec (11.4-14.6) H 07/30/23 15:05
INR 1.23 07/30/23 15:05
APTT 27.9 Sec (23.4-35.0) 07/30/23 15:05
Vital Signs
Vital Signs
Temp Pulse Resp BP Pulse Ox
98.1 F 96 20 101/46 95
08/01/23 04:00 08/01/23 05:00 07/31/23 16:28 08/01/23 05:00 08/01/23 05:00
CT Intake/Output/Weight
07/31/23 07/31/23 08/01/23
06:59 18:59 06:59
Intake Total 921.6 / 1201.8 1052 / 2186 1134 / 2186
Output Total 1220 / 1760 / 1960 105 / 1959
Balance -298.4 / -558.2 142 / 226 84 / 226
SaO2: 95 (2L)
Physical Exam
-
General: Awake, Oriented and AOx3
Cardiovascular: Regular rate & rhythm, No Murmurs, No Rub and No Gallop
Respiratory: Decreased Breath Sounds (at bases, otherwise clear)
Sternum: Stable
Incision: Clean, Dry, Intact and Dressing Intact
Extremities: Edema +1
Data Reviewed
-
Lab Results: Results Reviewed
Medications: Active Meds Reviewed
Chest X-Ray: Report Reviewed and Image Reviewed
ECG: Report Reviewed and Image Reviewed
[2023-08-01 07:05] LABS: Glucose - Point of Care 138 mg/dl (70-99)
--- NOTE | 2023-08-01 07:33 | W.PN.ANS.POP ---
Anesthesia Post Operative
- Anesthesia Post Op Note
Vital Signs Stable-See Nursing Note: Yes
Airway Patent: Yes
Adequate Pain Control: Yes
Change in Mental Status: No
Current Postoperative Nausea & Vomiting: No
Anesthesia Complications: No
General Anesthetic Recall: No
Unplanned Admission: No
Post Op Hydration Adequate: Yes
- -
Pt awake and alert, OOB to chair. Resting comfortably with no anesthesia related c/o at time of post op visit.
[2023-08-01] MEDS: SENOKOT-S 1 TABLET PO ×2 (08:02→20:20)
[2023-08-01] MEDS: PROTONIX 40 MG PO (08:02)
[2023-08-01] MEDS: BACTROBAN 2% OINTMENT 1 APPLIC NASAL ×2 (08:03→20:20)
[2023-08-01] MEDS: LOW STRENGTH ASPIRIN 81 MG PO (08:03)
[2023-08-01] MEDS: PLAVIX 75 MG PO (08:03)
[2023-08-01] MEDS: NEURONTIN 100 MG PO ×3 (08:03→20:20)
[2023-08-01] MEDS: PACERONE 400 MG PO ×3 (08:03→20:21)
[2023-08-01 08:11] LABS: Glucose - Point of Care 150 mg/dl (70-99)
--- NOTE | 2023-08-01 08:34 | PTCARENOTE ---
Assumed care of patient from professor computer science RN. AAO x3 sitting up in the chair. Pain 'ok' at present. SR/ST on monitor. 2 L 94%, poor effort with the IS. Encouragement and proper technique provided. Chest tubes x 4 to - 20 cm suction , no air
leak or crepitus noted. Producing serosanguineous drainage. Abdomen obese, bowel sounds present, passing flatus. Voiding independently. General plus 1 anasarca. Pulses weak but palpable. Cordis kinked, awaiting Vascular access team for new
access. Insulin infusing per glycemic protocol. Plan for day discussed.
[2023-08-01] MEDS: NOVOLOG FLEXPEN SC (09:17)
[2023-08-01] MEDS: TOPROL XL 12.5 MG PO (09:17)
[2023-08-01] MEDS: JARDIANCE 25 MG PO (09:18)
[2023-08-01 09:20] LABS: Glucose - Point of Care 162 mg/dl (70-99)
--- NOTE | 2023-08-01 10:42 | PTCARENOTE ---
Insulin drip discontinued per order. RT IJ cordis removed d/t being kinked and unable to flush. LT arm # 18 PIV infiltrated. Removed, IVT in to provide new access
[2023-08-01] MEDS: LASIX 40 MG PO (11:17)
[2023-08-01] MEDS: KCL 20 MEQ PO (11:17)
[2023-08-01] MEDS: NSS IV (11:55)
--- NOTE | 2023-08-01 11:55 | PTCARENOTE ---
Bilateral pleural and both mediastinal chest tubes removed as per md order. Pt tolerated w/o issue. Chest x ray obtained after. Midline catheter placed by Vascular auto accessories installer. VSS, Assessment unchanged from prior.
[2023-08-01 13:19] LABS: Glucose - Point of Care 141 mg/dl (70-99)
[2023-08-01] MEDS: NOVOLOG FLEXPEN-MODERATE RESISTANCE SC ×2 (13:28→17:44)
--- NOTE | 2023-08-01 16:09 | PTCARENOTE ---
Pt ambulated with RN begrudgingly out into the hallway for approx 50 feet and then assisted back to bed after. Pt with significant QUILES, walk on room air pulse ox 89%, pt recovered quickly once sitting. Placed on 1 L NC with pulse ox of 98%. Pt
educated on need to increase ambulation. VSS. Assessment otherwise unchanged from prior.
--- NOTE | 2023-08-01 17:39 | PTCARENOTE ---
Pt missed urinal while attempting to void. Pt saturated the bed. Pt assisted oob to chair, wipe bath preformed, gown and linens changed.
[2023-08-01] MEDS: LIPITOR 80 MG PO (17:44)
[2023-08-01 17:46] LABS: Glucose - Point of Care 127 mg/dl (70-99)
[2023-08-02] VITALS (9 sets, daily range): BP systolic 111–136; BP diastolic 51–60; PULSE 88; O2SAT 95–97; BMI 46.1
[2023-08-02 04:40] LABS: Hematocrit 26.2 % (39.0-52.0); Hemoglobin 8.8 g/dL (13.0-18.0); Mean Corp Hgb Conc. 33.6 g/dL (33.0-37.0); Mean Corpuscular Hgb 30.3 pg (27.0-31.0); Mean Corpuscular Volume 90.3 fL (80.0-94.0); Mean Platelet Volume 10.3 fL (7.4-10.4); Platelet Count 292 10^3/uL (130-400); Red Cell Dist. Width 13.5 % (11.5-14.5); White Blood Cell Count 16.2 10^3/uL (4.8-10.8)
[2023-08-02 05:06] LABS: Blood Urea Nitrogen 26 mg/dl (9-20); Calcium 8.3 mg/dl (8.4-10.2); Carbon Dioxide 28 mmol/L (22-30); Chloride 100 mmol/L (98-107); Estimated Creatinine Clearance 120 ml/min; Glucose 114 mg/dl (70-99); Magnesium 2.5 mg/dl (1.6-2.3); Potassium 4.1 mmol/L (3.5-5.1); Sodium 134 mmol/L (135-145); eGFR > 60.00
--- NOTE | 2023-08-02 05:24 | W.PN.CT ---
Addendum entered and electronically signed by Carson López MD 08/02/23 06:38:
I saw and examined the patient.
The PA's note was reviewed and I agree with the note.
Comment:
POD#3 s/p CABG x 2
Doing well.
- D/C cordis
- OOB/IS/ambulate
- Hopefully home in 1-2 days
Original Note:
Today's Communication / Plan
-
Plan:
-No major issues overnight. Hemodynamically and neurologically intact
-BP has been soft postop, improving. Now on low dose BB
-H/h stable @ 8.8/26.2
-Has been tachycardic postop, Amiodarone increased to 400 mg TID
-Cont. current meds (ASA, Plavix, Amiodarone, Lipitor, Toprol XL, Lasix if BP permits)
-D/C cordis
-No temporary pacer
-Encourage use of IS
-Wean off of O2 as tolerated
-OOB into chair/Ambulate
-PT/OT following
-Home in 1-2 days
Assessment / Plan
-
Assessment:
-S/P CABG x 2 (LUIS to LAD, GSV to OM)/Left EVH/Right EVH (not utilized), by Dr. López, 07/30/23, pod#3
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
-NSTEMI @ [facility]
-LVEF 55%; improved to 60% postop per intraop VLADIMIR
-Acute diastolic CHF with admission to [facility] on 07/27/23- tx with bipap and iv Lasix
-Probable hemoptysis d/t pulmonary edema @ [facility]
-HTN
-HLD
-1st degree AVB
-Type 2 DM (hgb A1C 7.5)
-Class 3 obesity (BMI 46.4)
-Urinary frequency @ [facility]/Probable BPH
-Non-smoker (hx 2nd hand smoke exposure)
-S/P Cataracts
-S/P Appendectomy
-Acute postop blood loss/Anemia (stable without transfusion)
-Acute postop atelectasis/pleural effusion
-Acute postop hypovolemia with subsequent hypervolemia
Discussed patient care with: Cardiology, Nursing, Respiratory Therapy, Pharmacy and Care Team
Subjective
Procedure
S/P CABG x 2 (LUIS to LAD, GSV to OM)/Left EVH/Right EVH (not utilized), by Dr. López, 07/30/23,
-
Date of Service: August 02, 2023
Pt c/o mild incisional pain, states pain much better following removal of chest tubes yesterday
Objective Data
-
Lab Results
08/02/23 04:24
08/02/23 04:24
PT 15.3 Sec (11.4-14.6) H 07/30/23 15:05
INR 1.23 07/30/23 15:05
APTT 27.9 Sec (23.4-35.0) 07/30/23 15:05
Vital Signs
Vital Signs
Temp Pulse Resp BP Pulse Ox
98 F 85 20 112/52 95
08/01/23 19:28 08/02/23 03:40 08/01/23 16:05 08/02/23 00:00 08/02/23 03:40
CT Intake/Output/Weight
08/01/23 08/01/23 08/02/23
06:59 18:59 06:59
Intake Total 1134 / 2196 980 / 980
Output Total 1109 920 / 920
Balance 24 / 176 60 / 60
SaO2: 95 (1L)
Physical Exam
-
General: Awake, Oriented and AOx3
Cardiovascular: Regular rate & rhythm, No Murmurs, No Rub and No Gallop
Respiratory: Decreased Breath Sounds
Sternum: Stable
Incision: Clean, Dry, Intact and Dressing Intact
Extremities: Other (+trace edema)
Data Reviewed
-
Lab Results: Results Reviewed
Medications: Active Meds Reviewed
Chest X-Ray: Report Reviewed and Image Reviewed
ECG: Report Reviewed and Image Reviewed
[2023-08-02] MEDS: TYLENOL 1000 MG PO ×3 (07:45→20:14)
[2023-08-02] MEDS: PACERONE 400 MG PO ×3 (07:45→20:13)
[2023-08-02] MEDS: LOW STRENGTH ASPIRIN 81 MG PO (07:46)
[2023-08-02] MEDS: NEURONTIN 100 MG PO ×3 (07:46→20:13)
[2023-08-02] MEDS: SENOKOT-S 1 TABLET PO ×2 (07:46→20:13)
[2023-08-02] MEDS: TOPROL XL 12.5 MG PO ×2 (07:46→20:13)
[2023-08-02] MEDS: PROTONIX 40 MG PO (07:46)
[2023-08-02] MEDS: NSS IV (07:46)
[2023-08-02] MEDS: JARDIANCE 25 MG PO (07:46)
[2023-08-02] MEDS: PLAVIX 75 MG PO (07:46)
--- NOTE | 2023-08-02 08:01 | PTCARENOTE ---
Assumed care of patient from screw machine tender RN, DANIELEO x 3 Sitting up in the chair. SR on monitor. 1 L NC 95%, trialed on room air and 88%, c/o sob without oxygen. Placed back on 1 L. IS to 750. Lungs decreased bilaterally t/o. Abdomen obese, round,
positive bowel sounds t/o, passing large amounts of flatus. General plus 1 anasarca. Pulses weakly palpable. Sternal Aquacel c,d,i. Bilateral leg incisions well approximated with surgical glue intact. Plan for day discussed.
[2023-08-02 08:32] LABS: Glucose - Point of Care 142 mg/dl (70-99)
--- NOTE | 2023-08-02 08:33 | W.PN.CD ---
Today's Communication / Plan
-
Agree with current therapy
Progressive ambulation
Impression / Plan
-
Mr. Luo is a 72 yo male with HTN, HLD, morbid obesity and DM, who presented [facility] 07/28/23 with SOB. NSTEMI with elevated troponin and cardiac cath showed multivessel CAD, so he was transferred here for CABG evaluation. His almond blancher hand is Dr. Caro
at [facility]. Underwent CABG by Dr. López 07/30/23.
CAD/NSTEMI
- s/p CABG x 2 (LUIS to LAD, GSV to OM) by Dr. López 07/30/23
- Doing well
Acute anemia from procedural blood loss
Hx HTN, well controlled
HLD, stable on Lipitor 80mg daily.
DM, type II, sugar OK
Morbid obesity, BMI 46
Subjective:
No dyspnea or CP
Physical Exam
Vital Signs/Labs
Vital Signs
Temp Pulse Resp BP Pulse Ox
98.0 F 95 20 111/52 95
08/02/23 08:00 08/02/23 08:00 08/02/23 08:00 08/02/23 07:33 08/02/23 08:07
08/01/23 08/02/23 08/03/23
06:59 06:59 06:59
Actual Weight 147.7 kg 145.8 kg
08/02/23 04:24
08/02/23 04:24
PT 15.3 Sec (11.4-14.6) H 07/30/23 15:05
INR 1.23 07/30/23 15:05
APTT 27.9 Sec (23.4-35.0) 07/30/23 15:05
Magnesium 2.5 mg/dl (1.6-2.3) H 08/02/23 04:24
Triglycerides 214 mg/dl (10-149) H 03/13/24 17:37
LDL Cholesterol, Calc 69 mg/dl 07/28/23 17:37
VLDL Cholesterol, Calc 42 mg/dl (0-30) H 07/28/23 17:37
HDL Cholesterol 39 mg/dl 07/28/23 17:37
Physical Exam
Constitutional: No acute distress
Cardiovascular: Rhythm & rate is regular, Pedal edema is absent and Rub absent
Respiratory: Respiratory effort normal and Lungs clear to auscul. (but decreased at both bases)
GI: Soft, Distention absent and Non tender
Neuro/Psych: AO x 3
Data Reviewed
-
Date of Service: August 02, 2023
[2023-08-02] MEDS: NOVOLOG FLEXPEN-MODERATE RESISTANCE SC ×3 (09:08→18:49)
[2023-08-02] MEDS: LASIX 40 MG PO (09:28)
[2023-08-02] MEDS: KCL 20 MEQ PO (09:28)
[2023-08-02] MEDS: BACTROBAN 2% OINTMENT 1 APPLIC NASAL ×2 (09:28→20:14)
--- NOTE | 2023-08-02 13:05 | PTCARENOTE ---
Pain 1/10 , denies need for medication at this time. VSS. Assessment unchanged from prior. Will monitor.
--- NOTE | 2023-08-02 13:19 | CM ---
Reviewed chart. Met with Mr. Luo to review discharge plans. He states prior to admission he resides with his spouse and 48 year old daughter in a two story home with three steps to enter. He states he has a first floor set-up. He states he
sleeps in a recliner and has a full bathroom on the first floor. He would have to go up a full flight of steps to get to walk-in shower. He states he spouse will be home to assist in his care if needed. She does work two days a week at the [employer] at [employer], but she if off currently do to knee surgery. He states his daughter works for [employer] and sometimes can dyehouse worker. He states he gets most of his medications from the [facility]. We reviewed [facility] from [facility]. He is agreeable to [facility]. Will follow his progress in physical and occupational therapy. Medical work-up in progress. The discharge plan is to return home with his spouse and daughter and [facility] when
medically stable.
--- NOTE | 2023-08-02 15:16 | PTCARENOTE ---
Vital signs stable. Patient c/o 3/10 sternal incision pain, administered scheduled Tylenol as ordered. NSR/ST. HR 90s-100s. BP 120/53. RA. Oxygen saturation 94%. Patient voiding in BR with 1 assist and a rolling walker. Family at bedside. Will
continue to monitor.
[2023-08-02] MEDS: LIPITOR 80 MG PO (18:15)
[2023-08-02] MEDS: GLUCOPHAGE 1000 MG PO (18:15)
[2023-08-02 18:17] LABS: Glucose - Point of Care 135 mg/dl (70-99)
--- NOTE | 2023-08-02 20:00 | PTCARENOTE ---
assumed care of patient @ 1900. received pt sitting in chair, AOX3. VSS, however 89 % 02 on room air - placed on 1L with resolution to mid 90s. NSR on monitor, +PP +1 generalized anasarca.Heart sounds distant. Lungs clear however very diminished.
Belly round, obese, passing large amounts of flatus. Voiding clear yellow urine. Chest tube dressing changed. All surgical sites CDI, WDL. pt resting comfortably with call reyes within reach .
[2023-08-02] MEDS: DULCOLAX 10 MG PO (22:23)
[2023-08-02 22:24] LABS: Glucose - Point of Care 137 mg/dl (70-99)
[2023-08-03] VITALS (10 sets, daily range): BP systolic 107–143; BP diastolic 55–71; PULSE 89; O2SAT 94; BMI 45.7
[2023-08-03 03:39] LABS: Hematocrit 26.1 % (39.0-52.0); Hemoglobin 8.5 g/dL (13.0-18.0); Mean Corp Hgb Conc. 32.6 g/dL (33.0-37.0); Mean Corpuscular Volume 92.2 fL (80.0-94.0); Platelet Count 346 10^3/uL (130-400); Red Blood Cell Count 2.83 10^6/uL (4.70-6.10); Red Cell Dist. Width 13.5 % (11.5-14.5); White Blood Cell Count 13.9 10^3/uL (4.8-10.8)
[2023-08-03 04:29] LABS: Blood Urea Nitrogen 29 mg/dl (9-20); Calcium 8.1 mg/dl (8.4-10.2); Carbon Dioxide 29 mmol/L (22-30); Chloride 98 mmol/L (98-107); Estimated Creatinine Clearance 106 ml/min; Glucose 126 mg/dl (70-99); Magnesium 2.4 mg/dl (1.6-2.3); Sodium 132 mmol/L (135-145); eGFR > 60.00
--- NOTE | 2023-08-03 05:00 | W.PN.CT ---
Addendum entered and electronically signed by Carson López MD 08/03/23 09:11:
I saw and examined the patient.
The PA's note was reviewed and I agree with the note.
Comment:
Doing well. Transfer to SDU
D/C planning for 1-2 days
Original Note:
Today's Communication / Plan
-
Plan:
-No major issues overnight. Hemodynamically and neurologically intact
-BP has been soft postop, improved. Now tolerating low dose BB. Will benefit from Lasix, +1 pitting edema
-Na 132 today, IV diuresis if BP permits. Fluid restriction
-H/h stable @ 8.5/26.1
-Has been tachycardic postop, Amiodarone increased to 400 mg TID
-Cont. current meds (ASA, Plavix, Amiodarone, Lipitor, Toprol XL, Lasix)
-F/U 2-view cxr
-No temporary pacer
-Encourage use of IS
-Wean off of O2 as tolerated
-OOB into chair/Ambulate
-PT/OT following
-Home likely tomorrow
Assessment / Plan
-
Assessment:
-S/P CABG x 2 (LUIS to LAD, GSV to OM)/Left EVH/Right EVH (not utilized), by Dr. López, 07/30/23, pod#4
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
-NSTEMI @ [facility]
-LVEF 55%; improved to 60% postop per intraop VLADIMIR
-Acute diastolic CHF with admission to [facility] on 07/27/23- tx with bipap and iv Lasix
-Probable hemoptysis d/t pulmonary edema @ [facility]
-HTN
-HLD
-1st degree AVB
-Type 2 DM (hgb A1C 7.5)
-Class 3 obesity (BMI 46.4)
-Urinary frequency @ HRH/Probable BPH
-Non-smoker (hx 2nd hand smoke exposure)
-S/P Cataracts
-S/P Appendectomy
-Acute postop blood loss/Anemia (stable without transfusion)
-Acute postop atelectasis/pleural effusion
-Acute postop hypovolemia with subsequent hypervolemia
Discussed patient care with: Cardiology, Nursing, Respiratory Therapy, Pharmacy and Care Team
Subjective
Procedure
S/P CABG x 2 (LUIS to LAD, GSV to OM)/Left EVH/Right EVH (not utilized), by Dr. López, 07/30/23,
-
Date of Service: August 03, 2023
Pt c/o mild incisional pain, otherwise feels well. Ambulating halls
Objective Data
-
Lab Results
08/03/23 03:20
08/03/23 03:20
PT 15.3 Sec (11.4-14.6) H 07/30/23 15:05
INR 1.23 07/30/23 15:05
APTT 27.9 Sec (23.4-35.0) 07/30/23 15:05
Vital Signs
Vital Signs
Temp Pulse Resp BP Pulse Ox
97.7 F 78 16 143/67 95
08/03/23 04:00 08/03/23 04:00 08/03/23 04:00 08/03/23 03:22 08/03/23 04:00
CT Intake/Output/Weight
08/02/23 08/02/23 08/03/23
06:59 18:59 06:59
Intake Total 720 / 1200 480 / 1200
Output Total 950 / 950
Balance 720 / 250 -470 / 250
SaO2: 95 (2L)
Physical Exam
-
General: Awake, Oriented and AOx3
Cardiovascular: Regular rate & rhythm, No Murmurs and No Gallop
Respiratory: Decreased Breath Sounds
Sternum: Stable
Incision: Clean, Dry, Intact and Dressing Intact
Extremities: Edema +1
Data Reviewed
-
Lab Results: Results Reviewed
Medications: Active Meds Reviewed
Chest X-Ray: Report Reviewed and Image Reviewed
ECG: Report Reviewed and Image Reviewed
[2023-08-03] MEDS: TYLENOL 1000 MG PO ×3 (07:01→22:37)
[2023-08-03 07:35] LABS: Glucose - Point of Care 150 mg/dl (70-99)
--- NOTE | 2023-08-03 07:46 | PTCARENOTE ---
Patient received from shift supervisor film processing resting comfortably oob in chair, AAO X 3, states pain controlled at this time. NSR via cm, SaO2 @ 95% on RA. All procedural sites stable. Patient updated to plan of care for the day, in agreement. See work list for
full assessment and interventions performed.
[2023-08-03] MEDS: PROTONIX 40 MG PO (07:59)
[2023-08-03] MEDS: BACTROBAN 2% OINTMENT 1 APPLIC NASAL (07:59)
[2023-08-03] MEDS: TOPROL XL 12.5 MG PO ×2 (08:00→19:49)
[2023-08-03] MEDS: PLAVIX 75 MG PO (08:00)
[2023-08-03] MEDS: GLUCOPHAGE 1000 MG PO ×2 (08:00→18:05)
[2023-08-03] MEDS: SENOKOT-S 1 TABLET PO (08:00)
[2023-08-03] MEDS: LOW STRENGTH ASPIRIN 81 MG PO (08:00)
[2023-08-03] MEDS: NEURONTIN 100 MG PO ×3 (08:00→22:37)
[2023-08-03] MEDS: LASIX 40 MG PO (08:00)
[2023-08-03] MEDS: KCL 20 MEQ PO (08:01)
[2023-08-03] MEDS: PACERONE 400 MG PO ×3 (08:01→22:37)
[2023-08-03] MEDS: NOVOLOG FLEXPEN-MODERATE RESISTANCE 1 UNITS SC (08:02)
[2023-08-03] MEDS: JARDIANCE 25 MG PO (08:02)
[2023-08-03] MEDS: NSS IV (08:02)
--- NOTE | 2023-08-03 09:57 | PN.DE ---
Diabetes Education
- -
08/03/2023 Diabetes Education Consult
Patient is S/P CABG POD 4. A1C on admission 7.5%, CR .9, eGFR >60. Patient is alert and oriented, oob eating breakfast. He is very conversant, states he is followed by the DC, 100% disabled with agent orange. He receives glucose testing supplies
and medication from the DC. Prior to admission was taking metformin 1000 mg BID with Jardiance, 25 mg tablet cut in half.
He states he has a working glucose monitor with supplies but not tested his glucose on a regular basis. Provided diabetes education booklet and instructed on importance of testing and recording results so that he can provide results to his primary
doctor (who is local). Underlined times to test and target glucose ranges. Reviewed testing procedure with emphasis on washing and drying hands and discarding first drop of blood. He is very receptive.
--- NOTE | 2023-08-03 11:29 | PTCARENOTE ---
Patient and all belongings transported to 2241 w/assist of PT/OT. Report given to Carin Mcclellan RN.
--- NOTE | 2023-08-03 11:41 | PTCARENOTE ---
Received the patient form CV[facility]. The patient ambulated in the halls to his room with PT. He was QUILES by the time he reached the chair. His vital signs were stable. 94% on room air. NSR was noted on the monitor. His sternum dressing and chest tube
dressing were c/d/i. BL medial leg surgical wounds are DAVE. I oriented him to his room,. His call reyes is within reach.
[2023-08-03 13:24] LABS: Glucose - Point of Care 125 mg/dl (70-99)
[2023-08-03] MEDS: NOVOLOG FLEXPEN-MODERATE RESISTANCE SC ×2 (13:35→18:07)
--- NOTE | 2023-08-03 16:26 | W.PN.CD ---
Today's Communication / Plan
-
Doing well cardiac callaway
BM will come tonight
Impression / Plan
-
Mr. Luo is a 72 yo male with HTN, HLD, morbid obesity and DM, who presented [facility] 07/28/23 with SOB. NSTEMI with elevated troponin and cardiac cath showed multivessel CAD, so he was transferred here for CABG evaluation. His aircraft avionics technician is Dr. Caro
at [facility]. Underwent CABG by Dr. López 07/30/23.
CAD/NSTEMI
- s/p CABG x 2 (LUIS to LAD, GSV to OM) by Dr. López 07/30/23
- Doing well
-hopefully home tomorrow
Acute anemia from procedural blood loss- stable
HTN- well controlled
HLD, stable on Lipitor 80mg daily.
DM, type II, sugar OK
Morbid obesity, BMI 46
CONSTIPATION: no BM since OR. I offered my can't miss 100% effective treatment: he accepts. Will give lactulose 30cc with a 300cc bottle of Magnesium citrate. POW!
Subjective:
No dyspnea or CP
Physical Exam
Vital Signs/Labs
Vital Signs
Temp Pulse Resp BP Pulse Ox
98.5 F 83 16 107/64 96
08/03/23 15:06 08/03/23 15:06 08/03/23 15:06 08/03/23 15:06 08/03/23 15:06
08/02/23 08/03/23 08/04/23
06:59 06:59 06:59
Actual Weight 321 lb 6.943 oz 318 lb 12.615 oz
08/03/23 03:20
08/03/23 03:20
PT 15.3 Sec (11.4-14.6) H 07/30/23 15:05
INR 1.23 07/30/23 15:05
APTT 27.9 Sec (23.4-35.0) 07/30/23 15:05
Magnesium 2.4 mg/dl (1.6-2.3) H 08/03/23 03:20
Triglycerides 214 mg/dl (10-149) H 07/28/23 17:37
LDL Cholesterol, Calc 69 mg/dl 07/28/23 17:37
VLDL Cholesterol, Calc 42 mg/dl (0-30) H 07/28/23 17:37
HDL Cholesterol 39 mg/dl 07/28/23 17:37
Physical Exam
Constitutional: No acute distress and Comfortable
EENT: Anicteric
Cardiovascular: Rhythm & rate is regular and Murmur/rub/gallop absent
Respiratory: Respiratory effort normal and Lungs clear to auscul.
GI: Non tender
Neuro/Psych: AO x 3 and Motor deficits absent
Data Reviewed
-
Date of Service: August 03, 2023
[2023-08-03] MEDS: CITROMA 300 ML PO (16:44)
[2023-08-03] MEDS: DUPHALAC/CHRONULAC 20 GRAMS PO (16:44)
[2023-08-03] MEDS: LIPITOR 80 MG PO (18:05)
[2023-08-03 18:09] LABS: Glucose - Point of Care 144 mg/dl (70-99)
--- NOTE | 2023-08-03 18:57 | PTCARENOTE ---
The patient had a large soft/loose BM post Lactulose and Citroma.
[2023-08-03] MEDS: SENOKOT-S PO (19:49)
[2023-08-03 21:34] LABS: Glucose - Point of Care 139 mg/dl (70-99)
--- NOTE | 2023-08-03 23:08 | PTCARENOTE ---
Received pt at handoff. AOX3. Assessment noted as documented. VSS. Aquacel and CT dressing c/d/i. B/l medial leg surgical sites PHOTO FINISHER. Pt amb. in room w/ rolling walker; steady gait w/ QUILES. Currently in bed; call eric w/in reach.
[2023-08-04 03:16] VITALS: BP 128/53
[2023-08-04 04:55] VITALS: BMI 45.3
[2023-08-04 05:06] LABS: Hematocrit 27.1 % (39.0-52.0); Hemoglobin 8.6 g/dL (13.0-18.0); Mean Corp Hgb Conc. 31.7 g/dL (33.0-37.0); Mean Corpuscular Hgb 29.6 pg (27.0-31.0); Mean Corpuscular Volume 93.1 fL (80.0-94.0); Platelet Count 432 10^3/uL (130-400); Red Blood Cell Count 2.91 10^6/uL (4.70-6.10); Red Cell Dist. Width 13.5 % (11.5-14.5)
[2023-08-04 05:39] LABS: Blood Urea Nitrogen 27 mg/dl (9-20); Calcium 8.2 mg/dl (8.4-10.2); Carbon Dioxide 27 mmol/L (22-30); Chloride 99 mmol/L (98-107); Estimated Creatinine Clearance 105 ml/min; Glucose 124 mg/dl (70-99); Magnesium 2.6 mg/dl (1.6-2.3); Potassium 3.9 mmol/L (3.5-5.1); Sodium 134 mmol/L (135-145); eGFR > 60.00
[2023-08-04] MEDS: TYLENOL 1000 MG PO (06:19)
--- NOTE | 2023-08-04 06:52 | W.PN.CT ---
Today's Communication / Plan
-
Plan:
-No major issues overnight. Hemodynamically and neurologically intact
-BP has been soft postop, improved. Now tolerating low dose BB
-Na 134 today up from 132 yesterday. Cont. diuresis, fluid restriction
-H/h stable @ 8.6/27.1
-Has been tachycardic postop, Amiodarone increased to 400 mg TID
-Cont. current meds (ASA, Plavix, Amiodarone, Lipitor, Toprol XL, Lasix)
-No temporary pacer
-Encourage use of IS
-OOB into chair/Ambulate
-PT/OT following
-Home likely today
Assessment / Plan
-
Assessment:
-S/P CABG x 2 (LUIS to LAD, GSV to OM)/Left EVH/Right EVH (not utilized), by Dr. López, 07/30/23, pod#5
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
-NSTEMI @ [facility]
-LVEF 55%; improved to 60% postop per intraop VLADIMIR
-Acute diastolic CHF with admission to [facility] on 07/27/23- tx with bipap and iv Lasix
-Probable hemoptysis d/t pulmonary edema @ [facility]
-HTN
-HLD
-1st degree AVB
-Type 2 DM (hgb A1C 7.5)
-Class 3 obesity (BMI 46.4)
-Urinary frequency @ [facility]/Probable BPH
-Non-smoker (hx 2nd hand smoke exposure)
-S/P Cataracts
-S/P Appendectomy
-Acute postop blood loss/Anemia (stable without transfusion)
-Acute postop atelectasis/pleural effusion
-Acute postop hypovolemia with subsequent hypervolemia
Discussed patient care with: Cardiology, Nursing, Respiratory Therapy, Pharmacy and Care Team
Subjective
Procedure
S/P CABG x 2 (LUIS to LAD, GSV to OM)/Left EVH/Right EVH (not utilized), by Dr. López, 07/30/23,
-
Date of Service: August 04, 2023
Pt c/o mild incisional pain, otherwise feels well. Had BM with Lactulose and Mag citrate
Objective Data
-
Lab Results
08/04/23 04:12
08/04/23 04:12
PT 15.3 Sec (11.4-14.6) H 07/30/23 15:05
INR 1.23 07/30/23 15:05
APTT 27.9 Sec (23.4-35.0) 07/30/23 15:05
Vital Signs
Vital Signs
Temp Pulse Resp BP Pulse Ox
97.8 F 77 18 128/53 96
08/04/23 03:49 08/04/23 04:00 08/04/23 03:49 08/04/23 03:16 08/04/23 03:49
CT Intake/Output/Weight
08/03/23 08/03/23 08/04/23
06:59 18:59 06:59
Intake Total 480 / 1200 250 / 490 240 / 490
Output Total 950 / 950 200 / 650 450 / 650
Balance -470 / 250 50 / -160 -210 / -160
SaO2: 96 (RA)
Physical Exam
-
General: Awake, Oriented and AOx3
Cardiovascular: Regular rate & rhythm, No Murmurs, No Rub and No Gallop
Respiratory: Decreased Breath Sounds
Sternum: Stable
Incision: Clean, Dry, Intact and Dressing Intact
Extremities: Edema +1
Data Reviewed
-
Lab Results: Results Reviewed
Medications: Active Meds Reviewed
Chest X-Ray: Report Reviewed and Image Reviewed
ECG: Report Reviewed and Image Reviewed
[2023-08-04 07:31] VITALS: BP 119/67
[2023-08-04 07:38] LABS: Glucose - Point of Care 152 mg/dl (70-99)
[2023-08-04] MEDS: PACERONE 400 MG PO (08:07)
[2023-08-04] MEDS: FLUSH (NSS) 1 FLUSH IV (08:07)
[2023-08-04] MEDS: PLAVIX 75 MG PO (08:07)
[2023-08-04] MEDS: SENOKOT-S PO (08:08)
[2023-08-04] MEDS: TOPROL XL 12.5 MG PO (08:08)
[2023-08-04] MEDS: PROTONIX 40 MG PO (08:08)
[2023-08-04] MEDS: JARDIANCE 25 MG PO (08:08)
[2023-08-04] MEDS: KCL 20 MEQ PO (08:08)
[2023-08-04] MEDS: LOW STRENGTH ASPIRIN 81 MG PO (08:08)
[2023-08-04] MEDS: LASIX 40 MG PO (08:08)
[2023-08-04] MEDS: GLUCOPHAGE 1000 MG PO (08:09)
[2023-08-04] MEDS: NEURONTIN 100 MG PO (08:09)
[2023-08-04] MEDS: NOVOLOG FLEXPEN-MODERATE RESISTANCE 1 UNITS SC (09:17)
--- NOTE | 2023-08-04 10:10 | W.PN.CD ---
Today's Communication / Plan
-
Looks good for home
Impression / Plan
-
Mr. Luo is a 72 yo male with HTN, HLD, morbid obesity and DM, who presented [facility] 07/28/23 with SOB. NSTEMI with elevated troponin and cardiac cath showed multivessel CAD, so he was transferred here for CABG evaluation. His paper cup machine tender is Dr. Caro
at [facility]. Underwent CABG by Dr. López 07/30/23.
CAD/NSTEMI
- s/p CABG x 2 (LUIS to LAD, GSV to OM) by Dr. López 07/30/23
- Doing well
-hopefully home tomorrow
Acute anemia from procedural blood loss- stable
HTN- well controlled
HLD, stable on Lipitor 80mg daily.
DM, type II, sugar OK
Morbid obesity, BMI 46
Constipation improved per regimen given yesterday as Dr. Herron anticipated
Subjective:
No dyspnea or CP
Physical Exam
Vital Signs/Labs
Vital Signs
Temp Pulse Resp BP Pulse Ox
97.6 F 84 20 119/67 94
08/04/23 07:31 08/04/23 08:00 08/04/23 07:31 08/04/23 07:31 08/04/23 08:10
08/03/23 08/04/23 08/05/23
06:59 06:59 06:59
Actual Weight 144.6 kg 143.2 kg
08/04/23 04:12
08/04/23 04:12
PT 15.3 Sec (11.4-14.6) H 07/30/23 15:05
INR 1.23 07/30/23 15:05
APTT 27.9 Sec (23.4-35.0) 07/30/23 15:05
Magnesium 2.6 mg/dl (1.6-2.3) H 08/04/23 04:12
Triglycerides 214 mg/dl (10-149) H 07/28/23 17:37
LDL Cholesterol, Calc 69 mg/dl 07/28/23 17:37
VLDL Cholesterol, Calc 42 mg/dl (0-30) H 07/28/23 17:37
HDL Cholesterol 39 mg/dl 07/28/23 17:37
Physical Exam
Constitutional: No acute distress
Cardiovascular: Rhythm & rate is regular and Pedal edema is absent
Respiratory: Lungs clear to auscul. (decreased left base)
GI: Soft and Distention absent
Neuro/Psych: Alert
Data Reviewed
-
Date of Service: August 04, 2023
--- NOTE | 2023-08-04 10:50 | W.[place]-PDMP ---
[place]-PD[place]
-
Checked the [place]- Pres[place] Drug Monitoring Program website, no red flags identified; safe to proceed with prescription.
--- NOTE | 2023-08-04 10:50 | W.DCSUMMARY ---
Discharge Summary
Discharge Data
Date of Admission: 07/28/23
Date of Discharge: 08/04/23
-
Pending Results: No
Hospital Course
Primary care physician: Dr. Dave Carl MD.
Outpatient doctor of naturopathic medicine: Dr. Pieter Caro MD [facility]
Inpatient consultants: [facility] cardiology�DrNikkie Champion MD.
Procedures:
1. Coronary artery bypass grafting x 2 (left internal mammary artery�left anterior descending coronary artery, greater saphenous vein to obtuse marginal) by Dr. Carson López MD on 07/30/2023
Primary Diagnosis:
1. NSTEMI
2. Left main multivessel coronary artery disease
3. Morbid obesity, body mass index of 46.1
4. Wpg-sypbrcq-vfuasjdvt diabetes mellitus type 2, hemoglobin A1c 7.5
Secondary Diagnoses:
1. Hypertension
2. Hyperlipidemia
3. History of appendectomy
4. History of cataracts
HPI:
Patient is an extremely pleasant 72-year-old male who presented to [facility] on 07/27/2023 with shortness of breath x 3 days as well as associated lower extremity swelling and dyspnea upon exertion. Patient notified his PCP
who referred him to [facility]. Patient was hypoxic and placed on bilevel positive airway pressure. He was also treated with IV Lasix and continued his workup in the emergency department. EKG showed ST depressions and troponins were
positive and ruled him in for a non-ST elevated myocardial infarction I with peak troponin of 8459. He was started on a heparin and nitroglycerin drip. Subsequent cardiac catheterization revealed left main multivessel coronary artery disease. The
patient was ultimately transferred to [facility] for surgical evaluation to undergo coronary artery revascularization.
Hospital course:
Patient presented to [facility] on 07/28/2023. He was originally planned to start a heparin drip for a non-ST elevated myocardial infarction, however, after vomiting coffee-ground emesis/blood heparin drip was never started. The patient
was admitted to the cardiothoracic surgery service for further workup. Gastroenterology was consulted. Coffee-ground emesis subsided and patient was ultimately cleared by gastroenterology for surgical intervention. Patient was taken to the
operating theater on 07/30/2023.
Patient tolerated procedure well. Patient was from cardiopulmonary bypass. He remained intubated. He was transported from the operating room to the cardiovascular intensive care unit where he underwent his postoperative recovery. He
was extubated in a timely fashion on postoperative day 0. Aspirin 81 mg was started that evening.
The patient's postoperative course was overall uneventful. He progressed in routine fashion. On postoperative day #1 all hemodynamic monitoring, A-line, were discontinued. He was started on beta-blockade therapy. Chest tubes and Mak catheter
were kept in place. They were removed without issues on postoperative day #2. Mak catheter was also removed on postoperative day #2, and physical therapy and Occupational Therapy were consulted. Patient underwent aggressive diuresis with IV
Lasix. This was later transitioned to p.o. Lasix. He continued to progress without issues. He was working well and ambulating with physical therapy/Occupational Therapy, and cardiac rehab. His home diabetes med regimen was initiated. Patient
was seen on postoperative day 5 by attending physician and medically cleared to be discharged to home with home care services.
Home medication changes:
Please stop taking the following medications:
Stop taking all qmxz-vij-zqzoyen supplements unless outlined below until follow-up and discussed with Dr. Carson López MD.
Stop taking lisinopril 10 mg daily�reevaluate at follow-up with cardiology, labile blood pressures postop
Stop taking pravastatin 20 mg daily�replace with atorvastatin 80 mg every afternoon
Please pay attention to the following medications changes:
Take acetaminophen 650 mg p.o. every 4 hours PRN�fever, mild pain
Take atorvastatin 80 mg QPM�hyperlipidemia
Take Plavix 75 mg daily x 1 year�NSTEMI, graft patency
Take Flexeril 5 mg every 8 hours PRN�Muscle Spasm
Take Lasix 40 mg daily x 7 days and then stop unless instructed otherwise�postoperative volume overload
Take metoprolol succinate 12.5 mg twice daily�s/p CABG, hypertension
Take oxycodone 5 mg p.o. every 6 hours PRN�moderate to severe pain control
Take Protonix 40 mg daily�GI prophylaxis with Plavix
Take potassium chloride 20 mEq daily x 7 days and then stop unless instructed otherwise�electrolyte replacement
Take sennosides�docusate sodium 8.6-50 mg 1 tab every 12 hours�bowel regimen
Discharge Plan
-
Patient Disposition: Home (Routine Discharge)
Discharge Diagnosis/Procedures: cad/cabg
Condition: Fair
Diet: Low Cholesterol, Low Sodium and Diabetic, Carb Controlled
Activity: No strenuous activity
Driving Restrictions: Not until seen by your Dr
Bathing Restrictions: OK to Shower
Other Services: Cardiac Rehab
Specialty Instructions: Weigh Daily- Call MD for wt gain/loss 3 lbs overnight/5 lbs in 1 week
Activity Restrictions/Additional Instructions:
ACTIVITY:
-No strenuous activity: no heavy lifting, pushing, pulling anything over 15 pounds for one month
-continue to use stairs as tolerated
DRIVING RESTRICTIONS:
-No driving for one month or until approved by your surgeon
WOUND CARE:
-Shower daily. Use soap & water.
-No lotions, creams or powders on incision area.
DIET:
-continue a low fat/low cholesterol diet.
-IF you are diabetic, continue carb controlled diet.
CARDIAC REHAB:
-Please make appointment to start in 5-6 weeks with your local hospital program. (See Cardiac Rehabilitation Discharge Booklet).
SPECIALTY INSTRUCTIONS:
-Weigh yourself daily. Call your physician for any weight gain/loss of 3 lbs overnight or 5 lbs in one week.
-REPORT any clicking noise or uneven appearance of your sternum to your surgeon immediately.
-If you smoke, you are instructed to quit. The [place] smoking hotline phone number is [phone]
Referrals:
[facility] [Outside]
Dave Carl DO [Family Provider] -
Benji Weiss MD [Active] - in six weeks (Sleep apnea evaluation, may see [facility]PRENTICE)
Pieter Caro MD [Active] - 09/09/23 10:00 am
Carson López MD [Active] - 09/07/23 2:00 pm
Additional Discharge Medication Instructions: Please stop taking the following medications:
Stop taking all qcln-foz-fjvcqrp supplements unless outlined below until follow-up and discussed with Dr. Carson óLpez MD.
Stop taking lisinopril 10 mg daily�reevaluate at follow-up with cardiology, labile blood pressures postop
Stop taking pravastatin 20 mg daily�replace with atorvastatin 80 mg every afternoon
Please pay attention to the following medications changes:
Take acetaminophen 650 mg p.o. every 4 hours PRN�fever, mild pain
Take atorvastatin 80 mg QPM�hyperlipidemia
Take Plavix 75 mg daily x 1 year�NSTEMI, graft patency
Take Flexeril 5 mg every 8 hours PRN�Muscle Spasm
Take Lasix 40 mg daily x 7 days and then stop unless instructed otherwise�postoperative volume overload
Take metoprolol succinate 12.5 mg twice daily�s/p CABG, hypertension
Take oxycodone 5 mg p.o. every 6 hours PRN�moderate to severe pain control
Take Protonix 40 mg daily�GI prophylaxis with Plavix
Take potassium chloride 20 mEq daily x 7 days and then stop unless instructed otherwise�electrolyte replacement
Take sennosides�docusate sodium 8.6-50 mg 1 tab every 12 hours�bowel regimen
Prescriptions:
New
atorvastatin 80 mg Tablet
80 mg PO QPM Qty: 30 1RF
clopidogrel 75 mg Tablet
75 mg PO DAILY Qty: 30 1RF
pantoprazole 40 mg Tablet,Delayed Release (Dr/Ec)
40 mg PO DAILY Qty: 30 1RF
acetaminophen 325 mg Tablet
650 mg PO Q4HPRN PRN (Reason: mild pain,headache,temp >101F ) Qty: 0 0RF
Rx Instructions:
Please purchase over the counter
cyclobenzaprine 10 mg Tablet
5 mg PO Q8HPRN PRN (Reason: muscle spasm) Qty: 30 0RF
metoprolol succinate 25 mg Tablet Extended Release 24 Hr
12.5 mg PO BID Qty: 30 1RF
sennosides-docusate sodium [Stool Softener-Stimulant Laxat] 8.6-50 mg Tablet
1 tab PO Q12 Qty: 60 0RF
Rx Instructions:
Take for constipation and while using narcotic
oxycodone 5 mg Tablet
5 mg PO Q6HPRN PRN (Reason: moderate-severe pain) Qty: 28 0RF
Rx Instructions:
Ongoing pain control. Attending physician Dr. Carson López MD
furosemide 40 mg Tablet
40 mg PO DAILY Qty: 7 0RF
Rx Instructions:
Take Lasix 40 mg (1tab) daily for 7 days and stop unless instructed otherwise
potassium chloride 20 mEq Tablet,Er Particles/Crystals
20 meq PO DAILY Qty: 7 0RF
Rx Instructions:
Take Potassium chloride 20 meq (1tab) daily with Lasix x7 days and stop unless instructed otherwise
Continued
metformin 1,000 mg Tablet
1,000 mg PO BID
folic acid 800 mcg Tablet
0.8 mg PO DAILY
ascorbic acid (vitamin C) 1,000 mg Capsule, Extended Release
PO BID
augqxeudqien-bidabyev-ajjtfs Tablet
1 tab PO DAILY
empagliflozin 25 mg Tablet
25 mg PO DAILY
aspirin 81 mg Capsule
81 mg PO DAILY
Discontinued
calcium 600 mg Capsule
PO BID
cranberry extract 425 mg Capsule
425 mg PO BID
milk thistle 200 mg Capsule
200 mg PO DAILY
Rx Instructions:
give with meal/snack
cyanocobalamin (vitamin B-12) [P41-Unaic] 1,000 mcg Tablet
2,500 mcg PO DAILY
garlic 1,000 mg Capsule
BID
lisinopril 10 mg Tablet
10 mg PO DAILY
zinc 50 mg Tablet
50 mg PO DAILY
pravastatin 20 mg Tablet
20 mg PO HS
coenzyme Q10 [CoQ-10] 100 mg Capsule
200 mg PO DAILY
Fish Oil (with DHA-EPA) Capsule
2 cap PO BID
saw palmetto 450 mg Capsule
450 mg PO BID
alpha lipoic acid 600 mg Capsule
600 mg PO BID
biotin 1,000 mcg Tablet,Chewable
1,000 mcg PO DAILY
lutein-zeaxanthin 20 mg- 1,000 mcg Capsule
PO
turmeric 400 mg Capsule
PO TID
Glucosamine Chondroitin 550-30-1 mg Capsule
PO BID
magnesium glycinate 100 mg magnesium Capsule
650 mg PO DAILY
Discharge Orders:
Discharge Patient (As Directed); Ordered 08/04/23
Ordered By: Ksenia Freeman
Care Plan Goals
Care Plan Goals:
Problem: Readiness for enhanced knowledge related to diagnosis and treatment plan
Goal: Understand your diagnosis and treatment plan needs, including medications if applicable.
Instructions: Know your diagnosis, underlying causes and treatment plan options, including medications if applicable. Consult with your health care team to learn about your diagnosis and treatment plan, including medications if applicable.
--- NOTE | 2023-08-04 11:28 | CM ---
CM following for DC planning needs.
Pt. for DC to home today. Order noted.
Spoke w/ patient at bedside. He reports that he is feeling well. He is prepared for DC.
Reviewed DC plan for home w/ [facility].
Plan: HOME w/ [facility].
[2023-08-04 11:36] VITALS: BP 110/53
--- NOTE | 2023-08-04 12:05 | PTCARENOTE ---
Removed all surgical dressings and assisted the patient in the shower.
[2023-08-04] MEDS: NSS IV (12:53)
--- NOTE | 2023-08-04 13:56 | PTCARENOTE ---
The patient was discharged home and left with his .
== END 2023-08-04 14:21 | disposition home health service (06) | DRG 235 ==
LOC: IVU 16:51
PROVIDERS: Clinical Nurse Specialist Acute Care; Nurse Practitioner; Physician Assistant Medical; ADMITTING PHYSICIAN Thoracic Surgery (Cardiothoracic Vascular Surgery); ATTENDING PHYSICIAN Thoracic Surgery (Cardiothoracic Vascular Surgery); CONSULT PHYSICIAN Internal Medicine Critical Care Medicine; FAMILY PHYSICIAN Family Medicine
PROC: 02100ZC Bypass Coronary Artery, One Artery from Thoracic Artery, Open Approach (ICD-10-PCS; 2023-07-30)
PROC: 06BP4ZZ Excision of Right Saphenous Vein, Percutaneous Endoscopic Approach (ICD-10-PCS; 2023-07-30)
PROC: 5A1221Z Performance of Cardiac Output, Continuous (ICD-10-PCS; 2023-07-30)
PROC: B24BZZ4 Ultrasonography of Heart with Aorta, Transesophageal (ICD-10-PCS; 2023-07-30)
PROC: 0210093 Bypass Coronary Artery, One Artery from Coronary Artery with Autologous Venous Tissue, Open Approach (ICD-10-PCS; 2023-07-30)
PROC: 06BQ4ZZ Excision of Left Saphenous Vein, Percutaneous Endoscopic Approach (ICD-10-PCS; 2023-07-30)
PROC: 0TPBX0Z Removal of Drainage Device from Bladder, External Approach (ICD-10-PCS; 2023-08-01)
DX: I21.4 Non-ST elevation (NSTEMI) myocardial infarction (principal); I50.31 Acute diastolic (congestive) heart failure; Z68.42 Body mass index [BMI] 45.0-49.9, adult; J98.11 Atelectasis; D62 Acute posthemorrhagic anemia; J90 Pleural effusion, not elsewhere classified; I25.10 Atherosclerotic heart disease of native coronary artery without angina pectoris; I11.0 Hypertensive heart disease with heart failure; E11.9 Type 2 diabetes mellitus without complications; E78.00 Pure hypercholesterolemia, unspecified; R09.02 Hypoxemia; E66.01 Morbid (severe) obesity due to excess calories; E86.1 Hypovolemia; E87.70 Fluid overload, unspecified; R35.0 Frequency of micturition; K59.00 Constipation, unspecified; I70.0 Atherosclerosis of aorta; G47.33 Obstructive sleep apnea (adult) (pediatric); I34.0 Nonrheumatic mitral (valve) insufficiency; Z82.49 Family history of ischemic heart disease and other diseases of the circulatory system; Z77.22 Contact with and (suspected) exposure to environmental tobacco smoke (acute) (chronic); Z79.84 Long term (current) use of oral hypoglycemic drugs
CPT/HCPCS: 36600; 71045; 71046; 71250; 80048; 80053; 80061; 81003; 81015; 82248; 82330; 82565; 82805; 82947; 82962; 83036; 83735; 84132; 84302; 84484; 84520; 85014; 85018; 85025; 85027; 85049; 85610; 85730; 86850; 86900; 86901; 86920; 87086; 93005; 93312; 93320; 93325; 93880; 93970; 94002; 97116; 97163; 97167; 97530; 97535; P9045

== ENCOUNTER 2023-08-07 21:32 | Inpatient (IN) | payer MEDICARE, BC, SELFPAY ==
[2023-08-07] VITALS (9 sets, daily range): BP systolic 119–177; BP diastolic 53–81; BMI 45.7; BMI 45.0
--- NOTE | 2023-08-07 15:38 | ED.GENMED ---
History of Present Illness
<CALI Romero - Last Filed: 08/07/23 19:50>
General
Chief Complaint: Breathing Problem
Source: patient
Exam Limitations: none
Time Seen by Provider: 08/07/23 15:21
Nursing documentation reviewed up to this point in time: agreed with
Travel History
Have you had any contact with someone who has COVID-19?: No
Do you have any symptoms of coronavirus? Fever > 100 degrees, chills, cough, shortness of breath, sore throat, loss of taste or smell, muscle aches, or headache?: No
History of Present Illness
History of Present Illness:
72 yr old male with history of CAD hypertension hyperlipidemia odt-thuszzu-avbfqeycp diabetes GI bleed who recently had CABG x 2(left internal mammary artery left anterior descending artery) by Dr. Lpóez on July 29.
Patient reports has been doing fine however yesterday when physical therapy came his pulse ox after exercising dropped to 74% today the nurse came to see patient and he also had an episode again where his pulse ox dropped to the 70s after exercising
but quickly went up to the 90s around 97%. He currently has no symptoms. He denies any chest pain.
Patient does admit to feeling slightly short of breath with walking. does reports she noticed this more since yesterday. He complains of mild swelling this is not new in his lower extremities
I spoke to his PCP DR Muse ) who did send pt in to be evaluated.
Review of Systems
<CALI Romero - Last Filed: 08/07/23 19:50>
Review of Systems
Allergies reviewed?: Yes
Other source history: family
All Other Systems: ROS reviewed and negative except as documented in HPI and ROS
Constitutional: Reports no symptoms; Denies fever, fatigue or chills
Respiratory: Reports trouble breathing; Denies cough
Cardiac: Reports no symptoms; Denies chest pain
ABD/GI: Reports no symptoms
Musculoskeletal: Reports no symptoms
Skin: Reports no symptoms
Neurological: Reports no symptoms
Psychiatric: Reports no symptoms
Phy Exam
<CALI Romero - Last Filed: 08/07/23 19:50>
General Physical Exam
General Presentation: no apparent distress
General age: appears stated age
General Skin: warm and dry
General Habitus: normal
General Mental: alert
General Hydration: appears well hydrated
Cardiovascular Exam
Cardiovascular Exam: regular rate/rhythm, no murmur and normal peripheral pulses
Pulmonary Exam
Pulmonary Exam: lungs clear and no respiratory distress
Neurological Exam
Neurological Exam: alert and oriented x3
Musculoskeletal Exam
Musculoskeletal Exam: full ROM
Skin Exam
Skin Exam: normal color and warm/dry
Psychiatric Exam
Psychiatric Exam: normal mood/affect
Scores
<CALI Romero - Last Filed: 08/07/23 19:50>
Heart Failure Risk
Heart Failure Risk Score: Not Applicable
Course
<CALI Romero - Last Filed: 08/07/23 19:50>
Orders/Labs/Results
Orders:
Orders
08/07/23 15:44
Electrocardiogram (*1) Stat
Reason for Study: Other
Other Reason for Exam: chest pain
Cardiac Monitoring- Treatment ONCE
EKG- Treatment ONCE
IV Insert/Care/Rem.- Treatment PRN
CR Chest - 2 Views Urgent
Comment:
Reason For Exam: sob
08/07/23 16:16
Complete Blood Count/With Diff Urgent
Comprehensive Metabolic Panel Urgent
NT-proBNP Urgent
08/07/23 18:11
CT Chest Pe Study Urgent
Comment:
Reason For Exam: sob
08/07/23 19:25
Venous Doppler Upr Ext Right [US Periph Venous UPPER Ext RT] Urgent
Comment:
Reason For Exam: swelling concern on ct noted
08/07/23 19:36
PTT Urgent
Comment: Obtain baseline before beginning heparin infusion if not already collected
Heparin 10,000 units IV NOW STA
Nursing to Place Non Medication Order As Directed
Physician Order: PTT 6 hours after initial start of Heparin infusion
08/07/23 19:39
PTT Urgent
Comment: Obtain baseline before beginning heparin infusion if not already collected
Nursing to Place Non Medication Order As Directed
Physician Order: PTT 6 hours after initial start of Heparin infusion
08/07/23 19:43
Heparin 10,000 units IV PRN PRN
08/07/23 19:44
Heparin 5,000 units IV PRN PRN
08/07/23 19:45
Heparin 03740 Units/250 ml 25,000 units in 250 ml IV PER PROTOCOL
Weight to be used for heparin protocol in kilograms (kg):: 144.605
Protocol:: DVT/PE
PTT Goal Range to be used:: PTT 73 to 111 seconds
Order type:: Initial
INITIAL Infusion Dose (UNITS/KG/hr) & then follow protocol:: 18 units/kg/hr
Infusion Dose in UNITS/hr & then follow protocol (UNITS/hr):: 2,000
INFUSION RATE in mL/hr & then follow protocol (mL/hr):: 20
For DVT/PE algorithm, re-bolus for low PTT?: Yes
PTT less than or equal to 64 seconds:: Re-bolus 80 units/kg (max 10,000units). Increase by 500 units/hr
(+ 5mL/hr)
PTT 64.1 to 72.9 seconds:: Re-bolus 40 units/kg (max 5,000 units). Increase by 300 units/hr
(+ 3mL/hr)
PTT 73 to 111 seconds:: Target Range. No change in rate.
PTT 111.1 to 130.9 seconds:: Decrease rate by 300 units/hr (- 3 mL/hr)
PTT 131 to 199.9 seconds:: HOLD for 1 hr. Then decrease by 400 units/hr (- 4mL/hr)
PTT greater than or equal to 200 seconds:: HOLD for 2 hrs & Notify Provider. Then decrease by 500 units/hr
(- 5mL/hr)
Lab follow-up:: Each change, PTT q6h until 2 consecutive are therapeutic. Then
PTT daily.
Abnormal Lab Results
08/07/23
16:16
WBC 17.1 H 10^3/uL
(4.8-10.8)
RBC 3.03 L 10^6/uL
(4.70-6.10)
Hgb 9.1 L g/dL
(13.0-18.0)
Hct 27.5 L %
(39.0-52.0)
Abs Immat Gran (auto) 0.5 H 10^3/uL
(0-0.05)
Absolute Neuts (auto) 12.8 H 10^3/uL
(1.4-6.5)
Absolute Monos (auto) 1.3 H 10^3/uL
(0.1-0.6)
Immature Gran % 3.1 H %
(0-0.5)
Lymphocytes % 13.0 L %
(20.5-51.1)
Sodium 133 L mmol/L
(135-145)
Chloride 95 L mmol/L
(98-107)
BUN 24 H mg/dl
(9-20)
Glucose 142 H mg/dl
(70-99)
08/07/23 16:16
08/07/23 16:16
Vital Signs
Initial and Last Documented VS:
Initial Vital Signs
Temp Pulse Resp BP Pulse Ox
98.5 F 93 16 177/77 94
08/07/23 15:10 08/07/23 15:10 08/07/23 15:10 08/07/23 15:10 08/07/23 15:10
Last Documented Vital Signs
Temp Pulse Resp BP Pulse Ox
36.9 C 85 26 152/68 97
08/07/23 15:10 08/07/23 19:15 08/07/23 19:15 08/07/23 18:00 08/07/23 19:15
Distribution Superintendent consulted with Physician
Distribution Superintendent consulted with physician?: Yes
Name of Physician Consulted: conrado
<Ga Rodriguez MD - Last Filed: 08/07/23 19:43>
Orders/Labs/Results
Orders:
Orders
08/07/23 15:44
Electrocardiogram (*1) Stat
Reason for Study: Other
Other Reason for Exam: chest pain
Cardiac Monitoring- Treatment ONCE
EKG- Treatment ONCE
IV Insert/Care/Rem.- Treatment PRN
CR Chest - 2 Views Urgent
Comment:
Reason For Exam: sob
08/07/23 16:16
Complete Blood Count/With Diff Urgent
Comprehensive Metabolic Panel Urgent
NT-proBNP Urgent
08/07/23 18:11
CT Chest Pe Study Urgent
Comment:
Reason For Exam: sob
08/07/23 19:25
Venous Doppler Upr Ext Right [US Periph Venous UPPER Ext RT] Urgent
Comment:
Reason For Exam: swelling concern on ct noted
08/07/23 19:36
PTT Urgent
Comment: Obtain baseline before beginning heparin infusion if not already collected
Heparin 10,000 units IV NOW STA
Nursing to Place Non Medication Order As Directed
Physician Order: PTT 6 hours after initial start of Heparin infusion
08/07/23 19:39
PTT Urgent
Comment: Obtain baseline before beginning heparin infusion if not already collected
Nursing to Place Non Medication Order As Directed
Physician Order: PTT 6 hours after initial start of Heparin infusion
08/07/23 19:43
Heparin 10,000 units IV PRN PRN
08/07/23 19:44
Heparin 5,000 units IV PRN PRN
08/07/23 19:45
Heparin 69864 Units/250 ml 25,000 units in 250 ml IV PER PROTOCOL
Weight to be used for heparin protocol in kilograms (kg):: 144.605
Protocol:: DVT/PE
PTT Goal Range to be used:: PTT 73 to 111 seconds
Order type:: Initial
INITIAL Infusion Dose (UNITS/KG/hr) & then follow protocol:: 18 units/kg/hr
Infusion Dose in UNITS/hr & then follow protocol (UNITS/hr):: 2,000
INFUSION RATE in mL/hr & then follow protocol (mL/hr):: 20
For DVT/PE algorithm, re-bolus for low PTT?: Yes
PTT less than or equal to 64 seconds:: Re-bolus 80 units/kg (max 10,000units). Increase by 500 units/hr
(+ 5mL/hr)
PTT 64.1 to 72.9 seconds:: Re-bolus 40 units/kg (max 5,000 units). Increase by 300 units/hr
(+ 3mL/hr)
PTT 73 to 111 seconds:: Target Range. No change in rate.
PTT 111.1 to 130.9 seconds:: Decrease rate by 300 units/hr (- 3 mL/hr)
PTT 131 to 199.9 seconds:: HOLD for 1 hr. Then decrease by 400 units/hr (- 4mL/hr)
PTT greater than or equal to 200 seconds:: HOLD for 2 hrs & Notify Provider. Then decrease by 500 units/hr
(- 5mL/hr)
Lab follow-up:: Each change, PTT q6h until 2 consecutive are therapeutic. Then
PTT daily.
Abnormal Lab Results
03/23/24
16:16
WBC 17.1 H 10^3/uL
(4.8-10.8)
RBC 3.03 L 10^6/uL
(4.70-6.10)
Hgb 9.1 L g/dL
(13.0-18.0)
Hct 27.5 L %
(39.0-52.0)
Abs Immat Gran (auto) 0.5 H 10^3/uL
(0-0.05)
Absolute Neuts (auto) 12.8 H 10^3/uL
(1.4-6.5)
Absolute Monos (auto) 1.3 H 10^3/uL
(0.1-0.6)
Immature Gran % 3.1 H %
(0-0.5)
Lymphocytes % 13.0 L %
(20.5-51.1)
Sodium 133 L mmol/L
(135-145)
Chloride 95 L mmol/L
(98-107)
BUN 24 H mg/dl
(9-20)
Glucose 142 H mg/dl
(70-99)
08/07/23 16:16
08/07/23 16:16
Vital Signs
Initial and Last Documented VS:
Initial Vital Signs
Temp Pulse Resp BP Pulse Ox
98.5 F 93 16 177/77 94
08/07/23 15:10 08/07/23 15:10 08/07/23 15:10 08/07/23 15:10 08/07/23 15:10
Last Documented Vital Signs
Temp Pulse Resp BP Pulse Ox
36.9 C 85 26 152/68 97
08/07/23 15:10 08/07/23 19:15 08/07/23 19:15 08/07/23 18:00 08/07/23 19:15
<CALI Romero - Last Filed: 08/07/23 19:50>
MDM/Problems Addressed
Differential Diagnosis Includes:
not limited to: Congestive heart failure, anemia pleural effusion PE
MDM/Problems Addressed:
Patient is a 72-year-old male status post CABG [address] López presented to the ER with increasing shortness of breath over the past 2 days. Patient denies any recent fever or chills. Shortness of breath is worse with exertion. Patient
reports his oxygenation did decrease into the 70s with ambulation at home but then did go back to the 90s. Patient presented here awake alert. He is mildly hypoxic with ambulation in the high 80s at rest he is in the low 90s. Patient had a full
workup including CAT scan. CAT scan does show PE with no evidence of right heart strain. As document however there is concern for raised thrombus within the right subclavian and axillary veins ultrasound was ordered. Patient was started on
heparin and to be admitted to the hospital service. I did notify DR. Zepeda CT surg. Pt is stable and non toxic appearing.
IV heparin started
Admitting hospitalist made aware
Chronic conditions affecting care:
Hypertension hyperlipidemia diabetes recent CABG July 29
<CALI Romero - Last Filed: 08/07/23 19:50>
*Radiology
Radiology exam reviewed: radiology read reviewed
*Pulse Oximetry
Patient hypoxic: yes
*EKG
Interpretation: normal
Comparison EKG: changes noted
Heart Rate: 85
Rate: normal
Rhythm: sinus
Ischemia: non-specific ST changes
*Critical Care Note
Total Time (30-74mins, 75-104mins- exclusive of procedures): Not Applicable
ED Attending Note
<CALI Romero - Last Filed: 08/07/23 19:50>
-
Portions of this chart may have been created with voice recognition software.� Occasional wrong word or��sound alike� substitutions may have occurred due to the inherent limitations of voice recognition software.
<Ga Rodriguez MD - Last Filed: 08/07/23 19:43>
ED Attending Note
Patient seen and examined by attending physician: Yes
ED Attending Note:
I have seen and evaluated the patient with a [id number] encounter. I have spoken to the advance practicer provider and involved in the medical history, the physical exam, medical decision making.
Evaluation and management service: agree unless noted differently below.
Results interpretation: agree unless noted differently below.
Focused HPI: 72-year-old male with a past medical history hypertension, hyperlipidemia, diabetes, CAD status post CABG on 07/30/[address] López who was discharged from hospital few days ago who presents to the emergency room for evaluation of
worsening exertional shortness of breath and hypoxia. He was discharged 3 days ago since discharge and has had increased shortness of breath with light exertion. He has not noticed any increased edema in his legs�it has been about stable since
discharge. Apparently today physical therapist came out and when he was walking around was noted to be tachypneic and when he checked his pulse ox had dropped all the way down into the 70s. Ultimately referred to the emergency room for assessment.
He denies any chest pain.
Physical exam: Awake alert not in distress. Hypertensive. Normal heart rate. Oxygen saturation fluctuating between high 80s and mid 90s. Mildly tachypneic. Lungs sound clear to auscultation. He has trace bilateral lower extremity edema.
Midline scar well-healed on his chest.
Medical Decision Makin-year-old male with recent CABG discharged from the hospital 3 days ago presents with increasing exertional dyspnea and hypoxia. His labs showed leukocytosis of 17. No recent operation. His hemoglobin is 9.1 which is
slightly improved from discharge. CMP no clinically significant abnormalities. BNP was elevated to 900 but no signs of edema on chest x-ray and only mild edema on exam lower suspicion that patient has acute CHF exacerbation. Given recent surgery
and hospitalization he was sent for a CTA which was positive for PE. Fortunately no signs of heart strain. Started on heparin, admitted to the hospitalist.
Discharge Plan
Departure
Patient Disposition: Admit
Date of Disposition: 08/07/23
Time of Disposition: 19:48
Admit to: Telemetry
Admit to doctor: hospitalist
Presentation/result/management discussed w/ accepting MD/DO: Hospitalist
Patient with high blood pressure during this ER visit?: Yes
Condition: Fair
Covid-19: Not Applicable
Discharge Problem:
Pulmonary embolism, Acute dyspnea
Prescriptions:
No Action
metformin 1,000 mg Tablet
1,000 mg PO BID
folic acid 800 mcg Tablet
0.8 mg PO DAILY
peknustgself-awrlppjb-jctqga Tablet
1 tab PO DAILY
empagliflozin 25 mg Tablet
25 mg PO DAILY
aspirin 81 mg Capsule
81 mg PO DAILY
atorvastatin 80 mg Tablet
80 mg PO QPM Qty: 30 1RF
clopidogrel 75 mg Tablet
75 mg PO DAILY Qty: 30 1RF
pantoprazole 40 mg Tablet,Delayed Release (Dr/Ec)
40 mg PO DAILY Qty: 30 1RF
acetaminophen 325 mg Tablet
650 mg PO Q4HPRN PRN (Reason: mild pain,headache,temp >101F ) Qty: 0 0RF
cyclobenzaprine 10 mg Tablet
5 mg PO Q8HPRN PRN (Reason: muscle spasm) Qty: 30 0RF
metoprolol succinate 25 mg Tablet Extended Release 24 Hr
12.5 mg PO BID Qty: 30 1RF
furosemide 40 mg Tablet
40 mg PO DAILY Qty: 7 0RF
Rx Instructions:
Take Lasix 40 mg (1tab) daily for 7 days and stop unless instructed otherwise
potassium chloride 20 mEq Tablet,Er Particles/Crystals
20 meq PO DAILY Qty: 7 0RF
Rx Instructions:
Take Potassium chloride 20 meq (1tab) daily with Lasix x7 days and stop unless instructed otherwise
ascorbic acid (vitamin C) [Vitamin C] 500 mg Tablet
500 mg PO DAILY
Referrals:
NONE,* [Family Provider] -
Interventions
Interventions:
*Risk Screen - Suicide Last Done: 08/07/23 15:10
*General Assessment Last Done: 08/07/23 15:41
*Neglect/Abuse Screening Last Done: 08/07/23 15:10
ED- Fall Risk Assessment Last Done: 08/07/23 15:41
*ED COVID-19 Vaccine History Last Done: 08/07/23 15:10
ED- Cardiac Assessment Last Done: 08/07/23 15:41
ED- Pulmonary Assessment Last Done: 08/07/23 15:41
[2023-08-07 16:24] LABS: % Basophils 0.2 % (0-2); % Eosinophils 0.9 % (0-6); % Immature Granulocytes 3.1 % (0-0.5); % Monocytes 7.8 % (1.7-9.3); Absolute Eosinophils 0.2 10^3/uL (0-0.7); Absolute Immature Granulocytes 0.5 10^3/uL (0-0.05); Absolute Lymphocytes 2.2 10^3/uL (1.2-3.4); Absolute Monocytes 1.3 10^3/uL (0.1-0.6); Absolute Neutrophils 12.8 10^3/uL (1.4-6.5); Hematocrit 27.5 % (39.0-52.0); Hemoglobin 9.1 g/dL (13.0-18.0); Mean Corp Hgb Conc. 33.1 g/dL (33.0-37.0); Mean Corpuscular Volume 90.8 fL (80.0-94.0); Nucleated Red Blood Cells % 0.3 % (-); Red Blood Cell Count 3.03 10^6/uL (4.70-6.10); Red Cell Dist. Width 13.9 % (11.5-14.5); White Blood Cell Count 17.1 10^3/uL (4.8-10.8)
[2023-08-07 16:36] LABS: ALT (SGPT) 19 U/L (0-50); AST (SGOT) 24 U/L (17-59); Albumin 3.7 g/dl (3.5-5.0); Alkaline Phosphatase 73 U/L (38-126); Blood Urea Nitrogen 24 mg/dl (9-20); Calcium 8.5 mg/dl (8.4-10.2); Carbon Dioxide 28 mmol/L (22-30); Chloride 95 mmol/L (98-107); Estimated Creatinine Clearance > 125 ml/min; Glucose 142 mg/dl (70-99); Potassium 4.3 mmol/L (3.5-5.1); Sodium 133 mmol/L (135-145); Total Bilirubin 1.3 mg/dl (0.2-1.3); Total Protein 6.5 g/dl (6.3-8.2); eGFR > 60.00
[2023-08-07 16:45] LABS: NT-proBNP 912 pg/ml
[2023-08-07 17:01] LABS: Mean Platelet Volume 8.8 fL (7.4-10.4); Platelet Count 141 10^3/uL (130-400)
[2023-08-07] MEDS: HEPARIN 25000 UNITS/250 ML IV (20:10)
[2023-08-07] MEDS: HEPARIN 10000 UNITS IV (20:10)
[2023-08-07 20:15] LABS: APTT 33.8 Sec (23.4-35.0)
--- NOTE | 2023-08-07 21:03 | HPS.HSE ---
Family Physician
-
Family Physician: * NONE
Chief Complaint
-
Hypoxemia
History of Present Illness
Patient is a 72y M with PMH significant for hypertension, DM-II, obesity and recent NC s/p CABG who presents to ED for evaluation of hypoxemia and dyspnea. Patient reports episodes of exertional dyspnea and chest heaviness over the past several
weeks / months. He presented to [facility] on 07/26 with these complaints and ruled-in for cardiac ischemia. He was found to have 80-90% left main stenosis and was transferred to for CT Surgery evaluation. Patient underwent CT Surgery on 07/29 with
CABG x2 including BARAHONA to LAD and GSV to OM). Patient tolerated the procedure well and was discharged to home. Patient states that he has had some dyspnea with activity since his procedure - which he attributed to normal post-op recovery. He has
had virtually no pain. He has had mild / non-productive cough. No fevers or chills.
He was evaluated by Home PT yesterday evening and noted to have SpO2 at home of 70% on room air. Visiting nurse was contacted and evaluated the patient today and found similar results. Patient was advised to present to the ED for further
evaluation.
In the ED, patient is resting fairly comfortably. He has no dyspnea at rest. He denies any significant pain or other current complaints.
Patient denies any prior history of DVT / PE.
Patient had a RUE midline in place during his recent hospitalization.
Medical History
Past Medical History
Past Medical History: Reports Other
Additional Past Medical History:
ASCVD
Hypertension
DM-II
Morbid Obesity
Past Surgical History: Reports Other
Additional Past Surgical History:
CABG x 2 (07/30/23)
Appendectomy
Social History
Tobacco: Non-smoker
Alcohol: Occasional
Drug: None
Personal:
Living: With Family
Family History
Family History: CAD
Allergies / Home Medications
Allergies reflects when Allergies were last updated in [facility].
Home Medications with original date entered in [facility]
Allergy/Medication List:
Allergies
Allergy/AdvReac Type Severity Reaction Status Date / Time
No Known Drug Allergies Allergy Unknown Verified 08/07/23 15:10
Home Medications
aspirin 81 mg capsule 81 mg PO DAILY Blood Clot Prevention/Tx 07/28/23
empagliflozin 25 mg tablet 25 mg PO DAILY Diabetes 07/28/23
folic acid 800 mcg tablet 0.8 mg PO DAILY Supplement 07/28/23
metformin 1,000 mg tablet 1,000 mg PO BID Diabetes 07/28/23
lrtiysdltlgi-xtzmpxrp-qzrzhg tablet 1 tab PO DAILY Supplement 07/28/23
atorvastatin 80 mg tablet 80 mg PO QPM High cholesterol #30 tabs 08/02/23
clopidogrel 75 mg tablet 75 mg PO DAILY Heart disease/condition #30 tabs 08/02/23
pantoprazole 40 mg tablet,delayed release 40 mg PO DAILY GI prophylaxis #30 tabs 08/02/23
acetaminophen 325 mg tablet 650 mg PO Q4HPRN PRN mild pain,headache,temp >101F #0 tabs 08/03/23
cyclobenzaprine 10 mg tablet 5 mg PO Q8HPRN PRN muscle spasm #30 tabs 08/04/23
furosemide 40 mg tablet 40 mg PO DAILY #7 tabs 08/04/23
metoprolol succinate 25 mg tablet,extended release 24 hr 12.5 mg PO BID #30 tabs 08/04/23
potassium chloride 20 mEq tablet,extended release(part/cryst) 20 meq PO DAILY #7 tabs 08/04/23
ascorbic acid (vitamin C) 500 mg tablet (Vitamin C) 500 mg PO DAILY 08/07/23
Review of Systems
-
History Source: Patient
Constitutional: Reports Fatigue; Denies Fever or Chills
EENT: Denies Sore Throat
Respiratory: Reports Cough and Trouble Breathing; Denies Hemoptysis
Cardiac: Denies Chest Pain or Palpitations
Abdomen/GI: Denies Abdominal Pain, Nausea, Vomiting, Diarrhea, Bloody Stools or Black Stools
: Denies Dysuria, Frequency or Flank Pain
Musculoskeletal: Reports Edema
Neurological: Denies Dizzy or Headache
Psych: Denies Depression or Anxiety
Physical Exam
Vital Signs
Vital Signs
Temp Pulse Resp BP Pulse Ox
98.5 F 89 27 152/68 96
08/07/23 15:10 08/07/23 20:30 08/07/23 20:30 08/07/23 18:00 08/07/23 20:30
Physical Exam
General: Other (Morbidly obese 72y M in no acute distress.)
HEENT: Moist mucous membranes, PERRLA and Other (Thick neck.)
Respiratory: Other (Few fine rales at bases. Otherwise clear.)
Cardiac: S1/S2, Regular Rhythm and Other (Sternotomy incision healing well.); No Murmur
GI: Soft, Non Tender, Non Distended, Normal Bowel Sounds and Other (Upper abdominal drain sites healing well.)
Musculoskeletal: No Clubbing, No Cyanosis and Other (2+ pitting edema b/l LEs. No calf tenderness / cords.)
Neuro: AO x 3
Laboratory Results
-
08/07/23 16:16
08/07/23 16:16
Laboratory Results
APTT 33.8 Sec (23.4-35.0) 08/07/23 19:58
Total Bilirubin 1.3 mg/dl (0.2-1.3) 08/07/23 16:16
AST 24 U/L (17-59) 08/07/23 16:16
ALT 19 U/L (0-50) 08/07/23 16:16
Alkaline Phosphatase 73 U/L (38-126) 08/07/23 16:16
Impression/Plan
-
A/P: Patient is a 72y M with PMH significant for ASCVD, HTN, DM-II and recent CABG who presents to ED for evaluation of hypoxemia and dyspnea.
Bilateral Pulmonary Emboli
Acute Hypoxemic Respiratory Insufficiency secondary to the above
- Admit for further evaluation and treatment.
- SpO2 at home in the 70s. SpO2 here 89% on room air at rest.
- CTA shows bilateral pulmonary emboli.
- Continue IV heparin as started in the ED.
- Supplemental O2 as needed for adequate SpO2.
- Check Echo.
- Follow for clinical improvement.
- Transition to PO therapy with Coumadin or DOAC for 6 months of therapy.
RUE DVT
- CTA shows filling defect in the RUE consistent with DVT.
- Patient did have RUE midline during his recent hospital stay and catheter-associated thrombus seems likely.
- Midline has since been removed.
- IV heparin as noted above.
ASCVD
s/p CABG x 2 (07/30/23)
- Stable. No post-op chest pain or other complaints (other than dyspnea as noted above).
- Surgical sites healing well.
- Continue current CV med regimen.
- CT Surgery evaluation for post-op check during stay.
Benign Hypertension
- Stable. Continue outpatient med regimen with holding parameters.
DM-II
- Stable. Continue SGLT2 inhibitor. Hold metformin given CTA done today.
- Follow glucose and cover with SSI as needed.
- A1C was 7.5% earlier this month.
Leukocytosis
- Mild leukocytosis that appears chronic based on available labs.
- No evidence of acute infectious process.
Morbid Obesity due to excess calories
- Affects all aspects of care.
- Patient has actually lost a significant amount of weight in the past year or so with dietary / exercise efforts.
- Encouraged to continue efforts with goal of weight loss.
DVT Prophylaxis: On IV Heparin
Code Status: Full
[2023-08-07 22:33] LABS: Glucose - Point of Care 115 mg/dl (70-99)
--- NOTE | 2023-08-07 23:00 | PTCARENOTE ---
Patient arrived to room 2253 from ER via stretcher without difficulty. Standing scale weight 142.3 kg. Patient A+A+Ox3. No neurological deficits noted. Patient with no c/o pain or discomfort. O2 at 4L via NC. SaO2 100%. Sinus Rhythm. Heart
rate 80-90's. Blood pressure 150/81 (100). Patient with no c/o chest pain, pressure or discomfort. Normoactive bowel sounds. No c/o nausea. No vomiting. Voiding. IV Heparin gtt infusing per MD orders and protocol. No s/s of IV Heparin
related complications. Accucheck result 115. Patient then ate box lunch. Patient now resting in bed watching television. Assessment as documented.
[2023-08-08] VITALS (10 sets, daily range): BP systolic 125–138; BP diastolic 54–66; BMI 45.0
[2023-08-08 00:24] LABS: Troponin I 0.028 ng/ml
[2023-08-08 04:33] LABS: APTT 127.1 Sec (23.4-35.0)
[2023-08-08 04:43] LABS: Troponin I 0.027 ng/ml
--- NOTE | 2023-08-08 05:00 | PTCARENOTE ---
Patient sleeping without difficulty. O2 at 3L. SaO2 96%. PTT result 127.1, In accordance with DVT/PE IV Heparin Protocol, IV Heparin rate decreased by 300 units/hr. Now infusing at 1700 units/hr (17 ml/hr). PTT 6hrs after rate change and
restart. Assessment/Interventions as documented.
[2023-08-08 05:41] LABS: Blood Urea Nitrogen 19 mg/dl (9-20); Calcium 8.5 mg/dl (8.4-10.2); Carbon Dioxide 27 mmol/L (22-30); Chloride 99 mmol/L (98-107); Estimated Creatinine Clearance > 125 ml/min; Glucose 115 mg/dl (70-99); Potassium 4.1 mmol/L (3.5-5.1); Sodium 137 mmol/L (135-145); eGFR > 60.00
--- NOTE | 2023-08-08 06:22 | CONSULT.CT ---
Consultation
-
Reason for Consultation: PE, recent CABG
Patient History
History of Present Illness
This is a very pleasant 72-year-old male with a recent on pump CABG x 2 (LUIS to LAD, GSV to OM)/Left EVH/Right EVH (not utilized), by Dr. López, 07/30/23) secondary to a NSTEMI at [facility], acute diastolic heart failure (LVEF 55%;
improved to 60% postop per intraop VLADIMIR), hypertension, hyperlipidemia, diabetes, morbid obesity with BMI 46 who presented to the emergency department for hypoxia. Originally while at [facility] for his NSTEMI he was on a heparin
infusion however there was a concern for vomiting with coffee-ground emesis and heparin was not started. After further workup it was likely related to acute pulmonary edema and not coffee-ground emesis and was cleared by GI for surgical
intervention. He underwent an uncomplicated operative course. Postoperatively his course was overall uneventful. He was discharged on postoperative day 5. At home while working with physical therapy he reported shortness of breath only with
continued ambulation. He denies shortness of breath at rest. He denies syncope or presyncopal episodes. He denies any chest pain aside from his anticipated surgical site pain at the sternum. He also denies any increased erythema, warmth, or
swelling to his lower extremities more so than when he was in the hospital. He denies any palpitations, dizziness, lightheadedness, orthostasis. He did not feel like he needed to come to the hospital however at the request of his PCP who was
informed of his hypoxia by the physical therapist he presented for further workup. CT angiogram of the chest revealed an enlarged pulmonary artery of 3.8 cm with filling deficits in the left lower lobe and right lower lobe pulmonary arteries. No
evidence of central saddle embolism and there is no mass effect upon the interventricular septum or findings of right heart strain. There is no evidence of thrombus within the right brachiocephalic vein however there may be another thrombus within
the right subclavian and axillary vein. He reportedly had a right arm midline catheter during his stay. He was placed on heparin infusion and admitted.
Past Medical History
NSTEMI, acute diastolic heart failure, hypertension, hyperlipidemia, diabetes, morbid obesity
Past Surgical History
s/p CABG x2 07/30/23) s/p appendectomy, s/p cataract surgery,
Allergies
Allergy/AdvReac Type Severity Reaction Status Date / Time
No Known Drug Allergies Allergy Unknown Verified 08/07/23 15:10
Home Medications
Medication Instructions Recorded Confirmed Type
aspirin 81 mg capsule 81 mg PO DAILY Blood Clot 07/28/23 08/07/23 History
Prevention/Tx
empagliflozin 25 mg tablet 25 mg PO DAILY Diabetes 07/28/23 08/07/23 History
folic acid 800 mcg tablet 0.8 mg PO DAILY Supplement 07/28/23 08/07/23 History
metformin 1,000 mg tablet 1,000 mg PO BID Diabetes 07/28/23 08/07/23 History
nwpaohutbjqs-lkfmvjhy-gqedkl tablet 1 tab PO DAILY Supplement 07/28/23 08/07/23 History
atorvastatin 80 mg tablet 80 mg PO QPM High cholesterol #30 08/02/23 08/07/23 Rx
tabs
clopidogrel 75 mg tablet 75 mg PO DAILY Heart 08/02/23 08/07/23 Rx
disease/condition #30 tabs
pantoprazole 40 mg tablet,delayed 40 mg PO DAILY GI prophylaxis #30 08/02/23 08/07/23 Rx
release tabs
acetaminophen 325 mg tablet 650 mg PO Q4HPRN PRN mild 08/03/23 08/07/23 Rx
pain,headache,temp >101F #0 tabs
cyclobenzaprine 10 mg tablet 5 mg PO Q8HPRN PRN muscle spasm 08/04/23 08/07/23 Rx
#30 tabs
furosemide 40 mg tablet 40 mg PO DAILY #7 tabs 08/04/23 08/07/23 Rx
metoprolol succinate 25 mg 12.5 mg PO BID #30 tabs 08/04/23 08/07/23 Rx
tablet,extended release 24 hr
potassium chloride 20 mEq 20 meq PO DAILY #7 tabs 08/04/23 08/07/23 Rx
tablet,extended release(part/cryst)
ascorbic acid (vitamin C) 500 mg 500 mg PO DAILY 08/07/23 08/07/23 History
tablet (Vitamin C)
Review of Systems
-
History Source: Patient
General: Reports Fatigue
HEENT: Reports No Symptoms
Respiratory: Reports SOB
Cardiac: Reports No Symptoms
Abdomen/GI: Reports No Symptoms
: Reports No Symptoms
Musculoskeletal: Reports Arthralgias
Skin: Reports No Symptoms
Vascular: Reports No Symptoms
Physical Exam
Vital Signs
Temp 98.1 F 08/08/23 04:35
Temp route: Oral 08/08/23 04:35
Pulse 82 08/08/23 04:45
Rhythm: Normal sinus rhythm 08/08/23 04:35
Resp Rate 18 08/08/23 04:35
Blood pressure 131/54 08/08/23 04:35
Blood pressure extremity used: Left upper arm 08/08/23 04:35
Position: Lying 08/08/23 04:35
MAP (cuff-Isabela Monitor) 76 08/08/23 04:34
MAP 76 08/08/23 04:35
Calculated MAP (manual cuff) 110 08/07/23 15:10
SaO2 96 08/08/23 04:35
Nasal Cannula flow liters per minute 3 08/08/23 04:35
Oxygen Mode of Delivery Room air 08/07/23 15:41
Can the patient verbally communicate their pain? Yes 08/07/23 23:00
Actual Weight 142.3 kg 08/07/23 22:15
Body Mass Index (BMI) 45.0 08/07/23 22:15
Labs
08/07/23 16:16
08/08/23 04:10
APTT 127.1 Sec (23.4-35.0) H 08/08/23 04:10
Troponin I 0.027 ng/ml 08/08/23 04:10
Cyw-K-Kudqseqgxra Pept 912 pg/ml 08/07/23 16:16
Exam
General: Well Developed, Well Nourished and Comfortable
HEENT: Normocephalic, Anicteric and Moist Mucous Membranes
Respiratory: Clear and Other (decreased)
Cardiac: S1/S2 and Regular Rhythm
GI: Soft and Non Tender
Skin: Warm and Dry
Neuro: Awake, Alert and AO x 3
Extremities: Upper Level Edema (none) and Lower Level Edema
Lymph: No Lymphadenopathy
Psych: Calm
Assessment / Plan
-
72-year-old male with a recent on pump CABG x 2 (LUIS to LAD, GSV to OM)/Left EVH/Right EVH (not utilized), by Dr. López, 07/30/23) secondary to a NSTEMI at [facility], acute diastolic heart failure (LVEF 55%; improved to 60% postop per
intraop VLADIMIR), hypertension, hyperlipidemia, diabetes, morbid obesity with BMI 46 who presented to the emergency department for shortness of breath. He was found to have mild exertional hypoxia and acute bilateral pulmonary emboli in the left lower
and right lower lobes with possible right upper extremity DVT.
Agree with anticoagulation
Agree with echo
May need to consider formal ultrasound of right arm and lower extremities for further DVT rule out
No complications apparent from his recent CABG, continue scheduled follow up
Remainder of care as per primary team
Final recommendations pending attending attestation. Please do not hesitate to contact us for any further questions.
--- NOTE | 2023-08-08 08:29 | W.PN.HOSP.TC ---
Today's Communication/Plan
-
Echocardiogram
COVID-19 antigen
Continue IV heparin
PT consult
Assessment / Plan
Assessment / Plan
Gen-AAOx3, NAD, morbid obesity
HEENT-NC, AT, anicteric, clear oral mm
Neck-supple
CV-reg, no M, +S1/S2
Lungs-clear B/L
Abd-soft, NT, ND
Ext-bilateral lower extremity edema
Musculoskeletal-no cyanosis, clubbing
Skin-warm and dry
Neuro-grossly non-focal
Psych-calm, cooperative
Acute hypoxic respiratory insufficiency -suspect multifactorial etiology including acute bilateral pulmonary emboli, obesity, likely ADITYA. Component of hypoventilation syndrome possible. Oxygenation stable on 3 L nasal cannula. Wean down as able.
Assess need for home oxygen on discharge. Will need outpatient sleep study.
Acute bilateral pulmonary emboli, right upper extremity DVT -suspect related to recent midline catheter during recent hospitalization. Therapeutic on IV heparin. Anticipate discharge on Eliquis when stable. Hemodynamically stable. Troponins
negative. BNP 912. No signs of RV strain on CT.
Subacute bronchitis -complaining of cough. No evidence of pneumonia. Check COVID-19 antigen.
CAD -recent CABG x 2 on 07/29. CT surgery to assess today.
Recent non-STEMI -discharged on dual antiplatelet therapy. Aspirin discontinued. Will discharge on Plavix and Eliquis.
Subacute normocytic anemia -hemoglobin 9.1 today. Discharge hemoglobin 8.6 on 08/03. Monitor for now. Suspect postoperative anemia. No evidence of active bleeding currently.
Hyponatremia - present on admission. Resolved.
DM2 without hyperglycemia -hemoglobin A1c 7.5% on 07/27. Was on metformin and empagliflozin prior to admission. Metformin on hold for 48 hours given contrast exposure.
Glucose 115 this morning.
Essential hypertension
Hyperlipidemia
Morbid obesity due to excess calories
Full code
Anticipated Discharge: 24 - 48 hours
Subjective/Interval History
-
Date of Service: August 08, 2023
Patient seen and examined. Currently no complaints. Does get dyspnea on exertion.
Objective Data
-
Labs:
Laboratory Results
08/07/23 08/08/23 08/08/23
19:39 04:10 10:30
APTT Cancelled 127.1 H Pending
Sodium 137
Potassium 4.1
Chloride 99
Carbon Dioxide 27
BUN 19
Creatinine 0.7
Glucose 115 H
Calcium 8.5
Vital Signs:
Vital Signs
Temp Pulse Resp BP Pulse Ox
98.1 F 82 18 131/54 96
08/08/23 04:35 08/08/23 04:45 08/08/23 04:35 08/08/23 04:35 08/08/23 04:35
I&O
08/07/23 08/08/23 08/09/23
06:59 06:59 06:59
Intake Total 397 / 397
Output Total 1225 / 1225
Balance -828 / -828
Review of Systems
-
History Source: Patient
All other systems: Reviewed and negative
[2023-08-08 09:07] LABS: Glucose - Point of Care 139 mg/dl (70-99)
[2023-08-08] MEDS: NOVOLOG FLEXPEN-LOW RESISTANCE SC ×2 (09:07→13:48)
[2023-08-08] MEDS: FOLVITE 0.800000000000000044 MG PO (09:08)
[2023-08-08] MEDS: TOPROL XL 12.5 MG PO ×2 (09:08→20:25)
[2023-08-08] MEDS: JARDIANCE 25 MG PO (09:08)
[2023-08-08] MEDS: PLAVIX 75 MG PO (09:08)
[2023-08-08] MEDS: PROTONIX 40 MG PO (09:08)
[2023-08-08 09:13] LABS: COVID-19 Antigen Negative (Negative)
--- NOTE | 2023-08-08 09:18 | PTCARENOTE ---
assumed care of pt from previous shift RN, sinus rhythm on tele, VSS, + peripheral pulses. Lungs diminished, dry cough noted. pox 94% on 3L NC. Heparin gtt maintained at 1700 units/hr. Plan of care reviewed and questions encouraged.
[2023-08-08 11:14] LABS: APTT 81.5 Sec (23.4-35.0)
[2023-08-08 11:27] LABS: Troponin I 0.023 ng/ml
[2023-08-08 13:49] LABS: Glucose - Point of Care 144 mg/dl (70-99)
[2023-08-08] MEDS: LIPITOR 80 MG PO (17:59)
[2023-08-08 18:04] LABS: Glucose - Point of Care 156 mg/dl (70-99)
[2023-08-08 18:13] LABS: APTT 71.9 Sec (23.4-35.0)
[2023-08-08] MEDS: NOVOLOG FLEXPEN-LOW RESISTANCE 1 UNITS SC (18:17)
--- NOTE | 2023-08-08 20:30 | PTCARENOTE ---
Patient received OOB in chair. Patient A+A+Ox3. No neurological deficits noted. Patient with no c/o pain or discomfort. O2 at 2L via NC. SaO2 96%. Mild QUILES. Sinus Rhythm. Heart rate 80-90's. No c/o chest pain, pressure or discomfort.
Normoactive bowel sounds. Voiding without difficulty. Patient prepared for bed. Linens changed. Patient ambulated to bed with use of rolling walker. Patient assisted to bed. Skin protectant ointment to sacrum and buttock. IV Heparin gtt
infusing per protocol. No s/s of IV Heparin related complications. Assessment as documented.
[2023-08-08] MEDS: HEPARIN 25000 UNITS/250 ML IV (22:25)
[2023-08-09] VITALS (12 sets, daily range): BP systolic 131–137; BP diastolic 56–108; PULSE 86–87; O2SAT 96–97; BMI 45.2
[2023-08-09 00:39] LABS: Glucose - Point of Care 138 mg/dl (70-99)
[2023-08-09 00:48] LABS: APTT 126.5 Sec (23.4-35.0)
--- NOTE | 2023-08-09 01:00 | PTCARENOTE ---
Patient dozing intermittently. PTT result 126.5. In accordance with DVT/PE protocol, IV Heparin gtt rate decreased 300 units/hr. IV Heparin gtt now infusing at 1700 units/hr (17 ml/hr). PTT 6hrs after rate change. No further changes from
previous assessment.
[2023-08-09 07:19] LABS: Glucose - Point of Care 153 mg/dl (70-99)
[2023-08-09 07:28] LABS: Hematocrit 28.7 % (39.0-52.0); Hemoglobin 9.4 g/dL (13.0-18.0); Mean Corp Hgb Conc. 32.8 g/dL (33.0-37.0); Mean Corpuscular Hgb 30.3 pg (27.0-31.0); Mean Corpuscular Volume 92.6 fL (80.0-94.0); Red Cell Dist. Width 14.2 % (11.5-14.5); White Blood Cell Count 16.2 10^3/uL (4.8-10.8)
[2023-08-09 07:30] LABS: APTT 82.7 Sec (23.4-35.0)
--- NOTE | 2023-08-09 07:42 | PTCARENOTE ---
Received the patient from the electrical laboratory technician in his bed. The patient is aaox3, VSS, NSR on the monitor with a HR of 70. His right R-band is in plac.
--- NOTE | 2023-08-09 07:44 | PTCARENOTE ---
Received the patient from the porcelain enamel laborer in his bed. The patient is aaox3, VSS, NSR on the monitor with a HR of 70. His right R-band is in place. He has discomfort in his right forearm. His right forearm is firm to palpitation. A BP cuff is inflated
at 120 mmHg over his right forearm. Yuliet and Dr. Herron is at the bedside.
I instructed the patient on his activity restrictions and expected OOB time. His call reyes is within reach.
--- NOTE | 2023-08-09 07:47 | PTCARENOTE ---
Vascular is at his bedside with ultrasound.
[2023-08-09 08:22] LABS: Platelet Count 50 10^3/uL (130-400)
[2023-08-09 08:23] LABS: Mean Platelet Volume 10.5 fL (7.4-10.4)
[2023-08-09] MEDS: NOVOLOG FLEXPEN-LOW RESISTANCE 1 UNITS SC (08:25)
[2023-08-09] MEDS: JARDIANCE 25 MG PO (08:26)
[2023-08-09] MEDS: PROTONIX 40 MG PO (08:26)
[2023-08-09] MEDS: PLAVIX 75 MG PO (08:26)
[2023-08-09] MEDS: TOPROL XL 12.5 MG PO ×2 (08:26→20:20)
[2023-08-09] MEDS: FOLVITE 0.800000000000000044 MG PO (08:26)
--- NOTE | 2023-08-09 08:41 | PTCARENOTE ---
The patient's platelets dropped from 141 yesterday to 50 this morning. He is currently on a heparin gtt at 1700 units/hr. Dr. Bains notified.
--- NOTE | 2023-08-09 09:35 | W.PN.UPDATE ---
Update Note
Progress Note Update
Patient readmitted for bilateral PE. He recently had CABG x 2 on 07/30/2023. His postoperative course was uneventful and was readmitted after developing acute onset shortness of breath during home physical therapy. He has been started on a heparin
drip.
No complaints, sitting out of bed in chair eating breakfast.
VSS still requiring 2 L O2 nasal cannula
Sternum stable, incision looks clean and dry, healing nicely
Bilateral leg incisions look good, no sign of infection
Continue current management per primary service
--- NOTE | 2023-08-09 10:14 | W.PN.HOSP.TC ---
Today's Communication/Plan
-
change IV heparin to Eliquis
assess for home O2
Assessment / Plan
Assessment / Plan
pt is a 72 year old female
thrombocytopenia--unclear if due to heparin drip--will send off HIT--transitioning to Eliquis and stop heparin drip
Acute hypoxic respiratory insufficiency -suspect multifactorial etiology including acute bilateral pulmonary emboli, obesity, likely ADITYA. Component of hypoventilation syndrome possible. Oxygenation stable on 3 L nasal cannula. Wean down as able.
Assess need for home oxygen on discharge. Will need outpatient sleep study.
Acute bilateral pulmonary emboli, right upper extremity DVT -suspect related to recent midline catheter during recent hospitalization--transition to Eliquis when stable. Hemodynamically stable. Troponins negative. BNP 912. No signs of RV strain
on CT.
Subacute bronchitis -complaining of cough. No evidence of pneumonia. COVID-19 antigen negative
CAD -recent CABG x 2 on 07/29--apprec CT surgery
Recent non-STEMI -discharged on dual antiplatelet therapy. Aspirin discontinued. Will discharge on Plavix and Eliquis.
Subacute normocytic anemia -hemoglobin 9.1 today. Discharge hemoglobin 8.6 on 08/03. Monitor for now. Suspect postoperative anemia. No evidence of active bleeding currently.
Hyponatremia - present on admission. Resolved.
DM2 without hyperglycemia -hemoglobin A1c 7.5% on 07/27. Was on metformin and empagliflozin prior to admission. Metformin on hold for 48 hours given contrast exposure.
Glucose 115 this morning.
Essential hypertension
Hyperlipidemia
Morbid obesity due to excess calories
Full code
Anticipated Discharge: Within 24 hours
Subjective/Interval History
-
Date of Service: August 09, 2023
pt without c/o
Objective Data
-
Labs:
Laboratory Results
08/09/23 08/09/23 08/09/23
00:29 07:00 13:00
WBC 16.2 H
Hgb 9.4 L
Hct 28.7 L
Plt Count 50 L D
APTT 126.5 H 82.7 H Cancelled
Vital Signs:
max temp for 24 hours
08/09/23
00:35
Temp 98.6 F
Vital Signs
Temp Pulse Resp BP Pulse Ox
97.4 F 87 20 137/60 94
08/09/23 07:13 08/09/23 08:00 08/09/23 07:13 08/09/23 07:13 08/09/23 08:25
I&O
08/08/23 08/09/23 08/10/23
06:59 06:59 06:59
Intake Total 397 / 397 722 / 722
Output Total 1225 / 1225 1950 / 1950 100 / 100
Balance -828 / -828 -1228 / -1228 -100 / -100
Review of Systems
-
All other systems: Reviewed and negative
Physical Exam
-
General: Well Developed, Well Nourished and No Apparent Distress
HEENT: Normocephalic, Atraumatic and Oxygen
Respiratory: Clear to Auscultation; Negative Wheezes or Rhonchi
Cardiac: Regular Rhythm and S1/S2; Negative Murmur
GI: Soft, Nontender and Nondistended
Musculoskeletal: No Clubbing, No Cyanosis and No Edema
Skin: Warm
Neuro: Awake
Psych: Calm
[2023-08-09] MEDS: ELIQUIS 10 MG PO ×2 (10:29→20:19)
--- NOTE | 2023-08-09 10:30 | PTCARENOTE ---
His heparin gtt discontinued, Eliquis given as per order.
[2023-08-09] MEDS: FLUSH (NSS) 1 FLUSH IV (10:31)
--- NOTE | 2023-08-09 11:19 | CM ---
Chart reviewed. Patient is independent of ADLS, recently discharged, lives with his who had knee surgery 4 weeks ago and his adult daughter in a 2 STH, 1st floor set up, ambulates with a rolling walker and SPC, patient also has 2 walking
sticks he uses. Patient was receiving services through [facility]. I place a referral to resume services once medically stable for discharge. Plan is for the patient to return home with HRN. CM to follow
--- NOTE | 2023-08-09 11:34 | CM ---
Addendum entered by Jen Ramos RN 08/09/23 12:32:
Reviewed cost information and patient is agreeable to the cost.
Original Note:
Pricing on Eliquis through the patient's prescription plan, ID# [id number], ph# [phone], is $50. I will place a free 30 day coupon in the patient's red discharge folder.
[2023-08-09 12:46] LABS: Glucose - Point of Care 107 mg/dl (70-99)
[2023-08-09] MEDS: NOVOLOG FLEXPEN-LOW RESISTANCE SC ×2 (12:54→17:22)
--- NOTE | 2023-08-09 17:00 | PTCARENOTE ---
The patient ambulated with the respiratory therapist on RA. Prior to ambulating, his pulse Ox at rest on RA was 94%. While ambulating on RA, his pulse was 92%.
His is concerned that he may drop while sleeping. Notified Dr. Bains of her concerns. An order for nocturnal pulse Ox trend was ordered for tonight.
[2023-08-09 17:22] LABS: Glucose - Point of Care 119 mg/dl (70-99)
[2023-08-09] MEDS: LIPITOR 80 MG PO (17:24)
--- NOTE | 2023-08-09 18:07 | W.PN.UPDATE ---
Update Note
Progress Note Update
Nurse texted me just now saying patient is reporting burning with urination, and requested a UA with reflex to culture order. Order for UA with reflex to culture placed.
--- NOTE | 2023-08-09 18:10 | PTCARENOTE ---
The patient complained of burning with urination. I contacted Dr. Trivedi (cross coverage) about the patient's complaint. Received an order for a UA reflex to culture.
--- NOTE | 2023-08-09 20:20 | PTCARENOTE ---
NSR. VSS. Respiratory aware of nocturnal pulse ox study. QUILES/shallow. RA. Urinalysis to be collected. Standby assistance with walker. Denies pain. Assessment per nursing flowsheet.
[2023-08-09 20:39] LABS: Glucose - Point of Care 170 mg/dl (70-99)
[2023-08-09 23:27] LABS: Urine Albumin Negative (Neg - Trace); Urine Bilirubin Negative (Negative); Urine Character Clear (Clear); Urine Color Yellow; Urine Glucose 3+ (Negative); Urine Ketone Negative (Negative); Urine Leukocyte Negative (Negative); Urine Nitrite Negative (Negative); Urine Occult Blood Negative (Negative); Urine Urobilinogen Negative (Neg - 1+)
[2023-08-10 03:33] VITALS: BP 125/68
[2023-08-10 04:04] LABS: Hematocrit 29.5 % (39.0-52.0); Hemoglobin 9.7 g/dL (13.0-18.0); Mean Corp Hgb Conc. 32.9 g/dL (33.0-37.0); Mean Corpuscular Hgb 29.8 pg (27.0-31.0); Mean Corpuscular Volume 90.5 fL (80.0-94.0); Mean Platelet Volume 12.7 fL (7.4-10.4); Platelet Count 55 10^3/uL (130-400); Red Blood Cell Count 3.26 10^6/uL (4.70-6.10); Red Cell Dist. Width 14.3 % (11.5-14.5); White Blood Cell Count 15.5 10^3/uL (4.8-10.8)
[2023-08-10 04:29] VITALS: BMI 45.0
[2023-08-10 04:30] LABS: Blood Urea Nitrogen 17 mg/dl (9-20); Carbon Dioxide 25 mmol/L (22-30); Chloride 101 mmol/L (98-107); Estimated Creatinine Clearance > 125 ml/min; Glucose 125 mg/dl (70-99); Magnesium 2.2 mg/dl (1.6-2.3); Potassium 4.4 mmol/L (3.5-5.1); Sodium 135 mmol/L (135-145); eGFR > 60.00
[2023-08-10 06:47] VITALS: BP 121/62
[2023-08-10 06:49] LABS: Glucose - Point of Care 130 mg/dl (70-99)
[2023-08-10] MEDS: NOVOLOG FLEXPEN-LOW RESISTANCE SC ×2 (07:18→13:32)
[2023-08-10] MEDS: PLAVIX 75 MG PO (08:36)
[2023-08-10] MEDS: TOPROL XL 12.5 MG PO (08:36)
[2023-08-10] MEDS: JARDIANCE 25 MG PO (08:36)
[2023-08-10] MEDS: FLUSH (NSS) 1 FLUSH IV (08:36)
[2023-08-10] MEDS: FOLVITE 0.800000000000000044 MG PO (08:36)
[2023-08-10] MEDS: PROTONIX 40 MG PO (08:36)
[2023-08-10] MEDS: ELIQUIS 10 MG PO (08:36)
--- NOTE | 2023-08-10 10:36 | W.PN.HOSP.TC ---
Addendum entered and electronically signed by Courtney Bains MD 08/10/23 12:44:
Patient is in need of oxygen on exertion due to pulse oximetry of 92% on room air at rest; 87% on room air with exertion. Patient was placed on 2L O2 via nasal cannula with saturation of 95%. Oxygen will help to improve hypoxemia.
Patient is mobile within the home. Albuterol therapy has been discussed and is ineffective in treating hypoxemia-related symptoms. Oxygen will improve the patient's symptoms.
The previous oxygen documentation is an error.
Original Note:
Today's Communication/Plan
-
d/c
Assessment / Plan
Assessment / Plan
pt is a 72 year old female
Patient is in need of nocturnal oxygen at 2 liters/minute via nasal cannula continuously due to pulse oximetry of 88 desaturations <88% on room air at rest. Oxygen will help to improve hypoxemia. Patient is mobile within the home. DuoNeb therapy has
been tried and is ineffective in treating hypoxemia related symptoms. Oxygen is needed to improve symptoms.
thrombocytopenia--unclear if due to heparin drip--will send off HIT--transitioned to Eliquis--platelet count up to 55K
Acute hypoxic respiratory insufficiency -suspect multifactorial etiology including acute bilateral pulmonary emboli, obesity, likely ADITYA. Component of hypoventilation syndrome possible. off O2--does qualify for nocturnal O2-- Assess need for home
oxygen on discharge. Will need outpatient sleep study.
Acute bilateral pulmonary emboli, right upper extremity DVT -suspect related to recent midline catheter during recent hospitalization--transition to Eliquis when stable. Hemodynamically stable. Troponins negative. BNP 912. No signs of RV strain
on CT.
Subacute bronchitis -complaining of cough. No evidence of pneumonia. COVID-19 antigen negative
CAD -recent CABG x 2 on 07/29--apprec CT surgery
Recent non-STEMI -discharged on dual antiplatelet therapy. Aspirin discontinued. Will discharge on Plavix and Eliquis.
Subacute normocytic anemia -hemoglobin 9.1 today. Discharge hemoglobin 8.6 on 08/03. Monitor for now. Suspect postoperative anemia. No evidence of active bleeding currently.
Hyponatremia - present on admission. Resolved.
DM2 without hyperglycemia -hemoglobin A1c 7.5% on 07/27. Was on metformin and empagliflozin prior to admission. Metformin on hold for 48 hours given contrast exposure.
Glucose 115 this morning.
Essential hypertension
Hyperlipidemia
Morbid obesity due to excess calories
Full code
Anticipated Discharge: Today
Subjective/Interval History
-
Date of Service: August 10, 2023
pt ready for d/c
Objective Data
-
Labs:
Laboratory Results
08/10/23
03:53
WBC 15.5 H
Hgb 9.7 L
Hct 29.5 L
Plt Count 55 L
Sodium 135
Potassium 4.4
Chloride 101
Carbon Dioxide 25
BUN 17
Creatinine 0.7
Glucose 125 H
Calcium 9.0
Vital Signs:
max temp for 24 hours
08/09/23
20:22
Temp 98.2 F
Vital Signs
Temp Pulse Resp BP Pulse Ox
98 F 81 22 121/62 92
08/10/23 06:45 08/10/23 07:00 08/10/23 06:45 08/10/23 06:47 08/10/23 08:35
I&O
08/09/23 08/10/23 08/11/23
06:59 06:59 06:59
Intake Total 722 / 722 240 / 240
Output Total 1949 / 1949 1300 / 1300
Balance -1228 / -1228 -1060 / -1060
Review of Systems
-
All other systems: Reviewed and negative
Physical Exam
-
General: Well Developed, Well Nourished, No Apparent Distress and Obese
HEENT: Normocephalic and Atraumatic; Negative Oxygen
Respiratory: Clear to Auscultation; Negative Wheezes or Rhonchi
Cardiac: Regular Rhythm and S1/S2; Negative Murmur
GI: Soft, Nontender, Nondistended and Normal Bowel Sounds
Musculoskeletal: No Clubbing, No Cyanosis and No Edema
Neuro: Awake
[2023-08-10 10:40] VITALS: O2SAT 83; O2SAT 98
--- NOTE | 2023-08-10 10:41 | PTCARENOTE ---
Ambulated the patient on RA.
- His pulse OX at rest prior to ambulation was 98%
- His pulse OX decreased to 83% on RA while ambulating approximately 50 feet.
- He recovered to 98% on RA post ambulation at rest.
[2023-08-10 11:12] VITALS: BP 109/88
[2023-08-10 11:16] LABS: Glucose - Point of Care 167 mg/dl (70-99)
--- NOTE | 2023-08-10 12:06 | PTCARENOTE ---
Ambulated the patient on RA and 2L of O2.
- His pulse OX at rest prior to ambulation was 96% on RA.
- His pulse OX decreased to 87% on RA while ambulating 50 feet.
- His pulse OX on 2L of O2 while ambulating 50 feet was 95%.
- He recovered to 98% on 2L post ambulation at rest.
[2023-08-10 13:29] LABS: Glucose - Point of Care 120 mg/dl (70-99)
[2023-08-10 15:37] VITALS: BP 121/69
--- NOTE | 2023-08-10 15:39 | PTCARENOTE ---
Oxygen was delivered to the patient's room and instructions were given by the O2 fundraising sale representative.
--- NOTE | 2023-08-11 07:05 | W.DCSUMMARY ---
Discharge Summary
Discharge Data
Date of Admission: 08/07/23
Date of Discharge: 08/10/23
-
Pending Results: Yes
Additional Pending Results:
HIT assay
Hospital Course
Primary care physician : Dave Carl
Principal Discharge diagnosis : Acute hypoxemic respiratory insufficiency due to acute bilateral pulmonary emboli, thrombocytopenia, right upper extremity DVT, subacute bronchitis,
Chronic Discharge diagnosis : Coronary artery disease status post bypass surgery on July 30, 2023, recent non-ST elevation myocardial infarction, chronic normocytic anemia, hyponatremia, type 2 diabetes mellitus without hyperglycemia, essential
hypertension, hyperlipidemia, morbid obesity with excess calories.
Hospital Course : Patient is a 72-year-old male who presented with complaints of hypoxemia and shortness of breath. He stated that he had episodes of exertional dyspnea and chest heaviness over the past several weeks to months. He presented on
July 26 with these complaints and ruled in for cardiac ischemia. He was found to have an 80 to 90% left main stenosis and underwent coronary artery bypass grafting on July 30, 2023. He was discharged home. He did have some dyspnea with activity
since the procedure which she attributed to normal postop recovery. He was evaluated by home therapy on the night prior to admission and was noted to have a pulse ox of 70% on room air. Patient was advised to go to the emergency department.
Workup shows him to have a right upper extremity DVT and pulmonary embolism. Patient was admitted.
Problem #1: Acute hypoxemic respiratory insufficiency due to acute bilateral pulmonary emboli/Right upper extremity DVT. Patient was admitted and started on IV heparin drip. He was eventually transitioned to Eliquis. His hypoxemic respiratory
insufficiency was likely due to to a combination of factors including the acute bilateral pulmonary emboli, his obesity, and likely obstructive sleep apnea which is not yet diagnosed. There also may be a component of hypoventilation syndrome. The
patient was weaned off oxygen but did qualify for nocturnal oxygen after a nocturnal O2 saturation evaluation.. His assessment for home oxygen on discharge also qualified him for oxygen. Patient will eventually need an outpatient sleep study.
Patient had an echocardiogram and there were no signs of RV strain on the CAT scan.
Problem #2: Thrombocytopenia. Patient's platelet count when heparin was started was 141,000 which dropped to 50,000. He was then transitioned to Eliquis and IV heparin was stopped. On the day of discharge his platelet count improved to 55,000.
HIT assay was sent off and is pending at this time.
Problem #3: Subacute bronchitis. Patient was complaining of a cough and this was likely due to his bilateral pulmonary emboli as opposed to bronchitis. There is no evidence of pneumonia and his COVID-19 antigen was negative.
Problem #4: All other medical issues. These include Coronary artery disease status post bypass surgery on July 30, 2023, recent non-ST elevation myocardial infarction, chronic normocytic anemia, hyponatremia, type 2 diabetes mellitus without
hyperglycemia, essential hypertension, hyperlipidemia, morbid obesity with excess calories. These medical issues were stable during his hospitalization. Medications were continued as able.
Patient is stable for discharge home at this time. If there are any questions regarding this dictation or his hospital stay, please not hesitate to call. Our office number is [phone].
Time for discharge 32 minutes.
Important imaging findings :
ULTRASOUND IMPRESSION:
Occlusive and nonocclusive thrombus in the vessels of the right upper arm.
CT SCAN CHEST IMPRESSION: Suboptimal opacification of the pulmonary arteries. However, examination is positive for pulmonary embolism with a high degree of confidence. No evidence for right heart strain.
As described above, concern is raised for thrombus within the right subclavian and axillary veins. Consider further evaluation with duplex ultrasound of the right upper extremity venous system.
Small bilateral pleural effusions with adjacent compressive atelectasis. Linear atelectasis within the anterior aspect of the lungs as well.
Minimal pericardial effusion.
Cholelithiasis. Fatty infiltration of the liver.
Discharge Plan
-
Patient Disposition: Home with Home Care
Discharge Diagnosis/Procedures: Acute hypoxemic respiratory insufficiency due to acute bilateral pulmonary emboli, right upper extremity DVT, subacute bronchitis, thrombocytopenia, coronary artery disease status post CABG on July 30, 2023, recent
non-ST elevation myocardial infarction, subacute chronic anemia, hyponatremia, type 2 diabetes mellitus without hyperglycemia, essential hypertension, hyperlipidemia, morbid obesity
Condition: Good
Diet: Low Cholesterol and Low Sodium
Activity: As tolerated
Driving Restrictions: As prior to admission
Bathing Restrictions: None
Blood Work: CBC to be obtained through primary care physician office.
Other Services: VN
Referrals:
[facility] [Outside] (fax [phone])
NONE,* [Family Provider] -
Additional Discharge Medication Instructions: Please tell your outpatient provider that your platelet count dropped from 141,000-50,000 with initiation of heparin. HIT assay is pending. Discharge platelet count is 55,000. You should have an
outpatient CBC done early next week.
You will also need an outpatient sleep study to assess for sleep apnea. You are being discharged home on oxygen at this time. Nocturnal use only.
You will no longer take aspirin. This has been replaced by both clopidogrel and Eliquis.
Prescriptions:
New
Eliquis 5 mg Tablet
5 mg PO BID Qty: 60 0RF
Rx Instructions:
Take 2 tablets (10 mg) twice daily for 1 week then continue on 1 tablet (5 mg) twice daily thereafter
Continued
metformin 1,000 mg Tablet
1,000 mg PO BID
folic acid 800 mcg Tablet
0.8 mg PO DAILY
ylaxxsriwnfl-hqjcrkkj-qmvjtz Tablet
1 tab PO DAILY
empagliflozin 25 mg Tablet
25 mg PO DAILY
atorvastatin 80 mg Tablet
80 mg PO QPM Qty: 30 1RF
clopidogrel 75 mg Tablet
75 mg PO DAILY Qty: 30 1RF
pantoprazole 40 mg Tablet,Delayed Release (Dr/Ec)
40 mg PO DAILY Qty: 30 1RF
acetaminophen 325 mg Tablet
650 mg PO Q4HPRN PRN (Reason: mild pain,headache,temp >101F ) Qty: 0 0RF
cyclobenzaprine 10 mg Tablet
5 mg PO Q8HPRN PRN (Reason: muscle spasm) Qty: 30 0RF
metoprolol succinate 25 mg Tablet Extended Release 24 Hr
12.5 mg PO BID Qty: 30 1RF
furosemide 40 mg Tablet
40 mg PO DAILY Qty: 7 0RF
Rx Instructions:
Take Lasix 40 mg (1tab) daily for 7 days and stop unless instructed otherwise
potassium chloride 20 mEq Tablet,Er Particles/Crystals
20 meq PO DAILY Qty: 7 0RF
Rx Instructions:
Take Potassium chloride 20 meq (1tab) daily with Lasix x7 days and stop unless instructed otherwise
ascorbic acid (vitamin C) [Vitamin C] 500 mg Tablet
500 mg PO DAILY
Discontinued
aspirin 81 mg Capsule
81 mg PO DAILY
Discharge Orders:
Discharge Patient (As Directed); Ordered 08/10/23
Ordered By: Courtney Bains
Care Plan Goals
Care Plan Goals:
Problem: Readiness for enhanced knowledge related to diagnosis and treatment plan
Goal: Understand your diagnosis and treatment plan needs, including medications if applicable.
Instructions: Know your diagnosis, underlying causes and treatment plan options, including medications if applicable. Consult with your health care team to learn about your diagnosis and treatment plan, including medications if applicable.
Discharge Date and Time
Discharge Date/Time: 08/10/23 16:26
Print Language: AUSTRALIAN
== END 2023-08-10 16:26 | disposition home health service (06) | DRG 314 ==
LOC: IVU 21:32
PROVIDERS: Hospitalist; Nurse Practitioner; ADMITTING PHYSICIAN Hospitalist; ATTENDING PHYSICIAN Internal Medicine; CONSULT PHYSICIAN Thoracic Surgery (Cardiothoracic Vascular Surgery); EMERGENCY PHYSICIAN Emergency Medicine
DX: T82.594A Other mechanical complication of infusion catheter, initial encounter (principal); I26.99 Other pulmonary embolism without acute cor pulmonale; I82.621 Acute embolism and thrombosis of deep veins of right upper extremity; I82.B11 Acute embolism and thrombosis of right subclavian vein; J98.11 Atelectasis; Z68.42 Body mass index [BMI] 45.0-49.9, adult; E87.1 Hypo-osmolality and hyponatremia; Y82.9 Unspecified medical devices associated with adverse incidents; R09.02 Hypoxemia; G47.33 Obstructive sleep apnea (adult) (pediatric); E66.01 Morbid (severe) obesity due to excess calories; D69.6 Thrombocytopenia, unspecified; J20.9 Acute bronchitis, unspecified; I25.10 Atherosclerotic heart disease of native coronary artery without angina pectoris; K76.0 Fatty (change of) liver, not elsewhere classified; E11.9 Type 2 diabetes mellitus without complications; I25.2 Old myocardial infarction
CPT/HCPCS: 71046; 71275; 80048; 80053; 81003; 82962; 83735; 83880; 84484; 85025; 85027; 85730; 86022; 87811; 93005; 93306; 93971; 94762; 96365; 97163; 97166; 99285; Q9957; Q9967